=== PATIENT | male | born 1955 | race Caucasian/White ===

== ENCOUNTER 2019-10-21 21:07 | Inpatient (IN) | payer OTHER ==
[~2019-10-21] VITALS: Ht 167.6 cm; Wt 59.0 kg
[2019-10-21] MEDS ORDERED: IMODIUM A-1 MG/7.5 M PO (21:21)
[2019-10-21] MEDS ORDERED: ZOFRAN ODT8 MG ORAL (21:21)
[2019-10-21] MEDS ORDERED: BENADRYL A12.5 MG/5 ORAL (21:21)
[2019-10-21] MEDS ORDERED: TYLENOL EXTRA500 MG ORAL (21:21)
[2019-10-21] MEDS ORDERED: OXYCODONE HCL20 M1 ORAL (21:21)
[2019-10-21 21:43] VITALS: BP 128/72
[2019-10-21 21:50] LABS: HEMATOCRIT 43.1 % (42.0-52.0); HEMOGLOBIN 13.9 G/DL (14.2-18.0); MEAN CORPUSCULAR VOLUME 78 FL (80-99); PLATELET COUNT 495 K/UL (150-450); RED BLOOD COUNT 5.52 M/UL (4.70-6.10); RED CELL DISTRIBUTION WIDTH 14.8 % (11.6-14.8); WHITE BLOOD COUNT 20.8 K/UL (4.8-10.8)
--- NOTE | 2019-10-21 21:57 | Diagnostic Imaging Report ---
EXAM: XR Chest, 1 View CLINICAL HISTORY: COUGH TECHNIQUE: Frontal view of the chest. COMPARISON: No relevant prior studies available. FINDINGS: Lungs: Probable atelectasis and scarring within the lower lungs. Pleural space: Unremarkable. Heart: Unremarkable. Mediastinum: Unremarkable. Bones/joints: Unremarkable. IMPRESSION: No acute findings in the chest.
[2019-10-21 22:06] LABS: ALANINE AMINOTRANSFERASE 69 U/L (12-78); ALBUMIN 3.3 G/DL (3.4-5.0); ALBUMIN/GLOBULIN RATIO 0.6 (1.0-2.7); ALKALINE PHOSPHATASE 634 U/L (46-116); ANION GAP 19 mmol/L (5-15); ASPARTATE AMINO TRANSFERASE 26 U/L (15-37); BILIRUBIN,TOTAL 0.4 MG/DL (0.2-1.0); BLOOD UREA NITROGEN 132 mg/dL (7-18); CALCIUM 9.6 MG/DL (8.5-10.1); CARBON DIOXIDE 12 MMOL/L (21-32); CHLORIDE 84 MMOL/L (98-107); CREATININE 2.6 MG/DL (0.55-1.30)
[2019-10-21 22:13] LABS: SODIUM 116 MMOL/L (136-145)
--- NOTE | 2019-10-21 22:13 | Emergency Room Report ---
History of Present Illness General Chief Complaint: Abnormal Labs Source: Patient, Medical Record (Callum Farias MD) Present Illness HPI 63 yo M presents to ED for abnormal labs. sent in from SNF. Dr Torres called stating that his sodium is low, his kidney function is elevated. possible infection. no fever or chills. no cough. h/o rectal cancer with recent surgery. patient states he feels ok. no other aggravating or relieving factors. denies any other associated symptoms. (Callum Farias MD) Allergies: Coded Allergies: CHLORPROMAZINE (Verified Allergy, Unknown, 10/21/19) GABAPENTIN (Verified Allergy, Unknown, 10/21/19) TEMSIROLIMUS (Verified Allergy, Unknown, 10/21/19) COVID-19 Screening Contact w/high risk pt: No Recent Travel to affected area: No Experienced COVID-19 symptoms?: No (Callum Farias MD) Patient History Past Medical History: psych hx, other - rectal Ca Past Surgical History: other - rectal surgery Pertinent Family History: none Social History: Denies: smoking, alcohol use, drug use Immunizations: UTD Reviewed Nursing Documentation: PMH: Agreed; PSxH: Agreed (Callum Farias MD) Nursing Documentation-PMH Hx Gastrointestinal Problems: Yes - Rectal CA History Of Psychiatric Problem: Yes - major depressive disorder (Callum Farias MD) Review of Systems All Other Systems: negative except mentioned in HPI (Callum Farias MD) Physical Exam Vital Signs Date Time Temp Pulse Resp B/P (MAP) Pulse Ox O2 Delivery O2 Flow Rate FiO2 10/21/19 21:08 98.1 86 18 128/72 (90) 100 Room Air Sp02 EP Interpretation: reviewed, normal General Appearance: no apparent distress, alert, GCS 15, non-toxic Head: normocephalic, atraumatic Eyes: bilateral eye normal inspection, bilateral eye PERRL ENT: hearing grossly normal, normal pharynx, no angioedema, normal voice Neck: full range of motion, supple/symm/no masses Respiratory: chest non-tender, lungs clear, normal breath sounds, speaking full sentences Cardiovascular #1: regular rate, rhythm, no edema Cardiovascular #2: 2+ carotid (R), 2+ carotid (L), 2+ radial (R), 2+ radial (L) , 2+ dorsalis pedis (R), 2+ dorsalis pedis (L) Gastrointestinal: normal bowel sounds, non tender, soft, non-distended, no guarding, no rebound Rectal: deferred Genitourinary: normal inspection, no CVA tenderness Musculoskeletal: back normal, normal range of motion, gait/station normal, non- tender Neurologic: alert, motor strength/tone normal, oriented x3, sensory intact, responsive, speech normal Psychiatric: judgement/insight normal, memory normal, mood/affect normal, no suicidal/homicidal ideation Reflexes: 3+ bicep (R), 3+ bicep (L), 3+ tricep (R), 3+ tricep (L), 3+ knee (R) , 3+ knee (L) Skin: other - see nursing skin notes Lymphatic: no adenopathy (Callum Farias MD) Medical Decision Making Diagnostic Impression: Primary Impression: Hyponatremia Additional Impressions: Hypokalemia UTI (urinary tract infection) ER Course Patient signed out to me pending laboratory studies, and admission. Laboratory studies did demonstrate hyponatremia with hypokalemia. Patient started on volume resuscitation with potassium containing fluids. IV antibiotics given for UTI. Patient did have a white count of 20,000. Patient was afebrile. Patient will be admitted to the stepdown unit to his primary care physician, Dr. Torres who accepted the admission. Laboratory Tests Test 10/21/19 21:30 10/21/19 23:30 White Blood Count 20.8 K/UL (4.8-10.8) H Red Blood Count 5.52 M/UL (4.70-6.10) Hemoglobin 13.9 G/DL (14.2-18.0) L Hematocrit 43.1 % (42.0-52.0) Mean Corpuscular Volume 78 FL (80-99) L Mean Corpuscular Hemoglobin 25.2 PG (27.0-31.0) L Mean Corpuscular Hemoglobin Concent 32.3 G/DL (32.0-36.0) Red Cell Distribution Width 14.8 % (11.6-14.8) Platelet Count 495 K/UL (150-450) H Mean Platelet Volume 6.4 FL (6.5-10.1) L Neutrophils (%) (Auto) % (45.0-75.0) Lymphocytes (%) (Auto) % (20.0-45.0) Monocytes (%) (Auto) % (1.0-10.0) Eosinophils (%) (Auto) % (0.0-3.0) Basophils (%) (Auto) % (0.0-2.0) Differential Total Cells Counted 100 Neutrophils % (Manual) 97 % (45-75) H Lymphocytes % (Manual) 1 % (20-45) L Monocytes % (Manual) 2 % (1-10) Eosinophils % (Manual) 0 % (0-3) Basophils % (Manual) 0 % (0-2) Band Neutrophils 0 % (0-8) Platelet Estimate Increased H Platelet Morphology Giant Platelets Rare Anisocytosis 1+ Microcytosis 1+ Sodium Level 116 MMOL/L (136-145) *L Potassium Level 2.7 MMOL/L (3.5-5.1) *L Chloride Level 84 MMOL/L (98-107) L Carbon Dioxide Level 12 MMOL/L (21-32) L Anion Gap 19 mmol/L (5-15) H Blood Urea Nitrogen 132 mg/dL (7-18) H Creatinine 2.6 MG/DL (0.55-1.30) H Estimated Glomerular Filtration Rate 25.2 mL/min (>60) Glucose Level 165 MG/DL (74-106) H Lactic Acid Level 1.70 mmol/L (0.4-2.0) Calcium Level 9.6 MG/DL (8.5-10.1) Magnesium Level 2.4 MG/DL (1.8-2.4) Total Bilirubin 0.4 MG/DL (0.2-1.0) Aspartate Amino Transferase (AST) 26 U/L (15-37) Alanine Aminotransferase (ALT) 69 U/L (12-78) Alkaline Phosphatase 634 U/L (46-116) H Total Protein 8.8 G/DL (6.4-8.2) H Albumin 3.3 G/DL (3.4-5.0) L Globulin 5.5 g/dL Albumin/Globulin Ratio 0.6 (1.0-2.7) L Urine Color Pale yellow Urine Appearance Cloudy Urine pH 6.5 (4.5-8.0) Urine Specific [place] 1.010 (1.005-1.035) Urine Protein 3+ (NEGATIVE) H Urine Glucose (UA) Negative (NEGATIVE) Urine Ketones Negative (NEGATIVE) Urine Blood 4+ (NEGATIVE) H Urine Nitrite Negative (NEGATIVE) Urine Bilirubin Negative (NEGATIVE) Urine Urobilinogen Normal MG/DL (0.0-1.0) Urine Leukocyte Esterase 3+ (NEGATIVE) H Urine RBC 15-20 /HPF (0 - 0) H Urine WBC Tntc /HPF (0 - 0) H Urine Squamous Epithelial Cells None /LPF (NONE/OCC) Urine Bacteria Many /HPF (NONE) H (Jonah León M.D.) EKG Diagnostic Results Rate: normal Rhythm: NSR ST Segments: no acute changes ASA given to the pt in ED: No (Callum Farias MD) Rhythm Strip Diag. Results EP Interpretation: yes Rhythm: NSR, no PVC's, no ectopy (Callum Farias MD) Last Vital Signs Date Time Temp Pulse Resp B/P (MAP) Pulse Ox O2 Delivery O2 Flow Rate FiO2 10/21/19 21:43 98.1 70 18 128/72 100 Room Air Status: improved (Callum Farias MD) Disposition: ADMITTED INPATIENT Condition: Serious Callum Farias MD Oct 21, 2019 22:13 Jonah León M.D. Oct 22, 2019 02:12
[2019-10-21 22:14] LABS: POTASSIUM 2.7 MMOL/L (3.5-5.1)
[2019-10-21] MEDS: NS w/KCl 40mEq 1,000 ML IV SCH (22:18)
[2019-10-21] MEDS ORDERED: Acetaminophen 500mg (ES) tab ORAL ONE (22:30)
[2019-10-22] VITALS (7 sets, daily range): BP systolic 97–136; BP diastolic 57–78
[2019-10-22 00:13] LABS: BILIRUBIN, URINE NEGATIVE (NEGATIVE); COLOR,URINE PALE YELLOW; GLUCOSE, URINE (UA) NEGATIVE (NEGATIVE); KETONES,URINE NEGATIVE (NEGATIVE); LEUKOCYTE ESTERASE ,URINE 3+ (NEGATIVE); NITRITE,URINE NEGATIVE (NEGATIVE); PH,URINE 6.5 (4.5-8.0); PROTEIN,URINE 3+ (NEGATIVE); UROBILINOGEN,URINE NORMAL MG/DL (0.0-1.0)
[2019-10-22 00:17] LABS: APPEARANCE,URINE CLOUDY
[2019-10-22] MEDS ORDERED: cefTRIAXone 1 GM in NS 55 ML IVPB ONE (02:00)
[2019-10-22] MEDS ORDERED: Morphine Sulfate 4mg/ml Inj (IV USE ONLY) IVP ONE (05:45)
[2019-10-22] MEDS ORDERED: Ondansetron ODT 8mg tab ORAL PRN (06:00)
[2019-10-22] MEDS ORDERED: Miralax 17gm pkt ORAL PRN (06:00)
[2019-10-22] MEDS ORDERED: Morphine Sulfate 2mg/ml Inj(IV/IM USE ONLY) IVP PRN (06:00)
[2019-10-22] MEDS ORDERED: Morphine Sulfate 4mg/ml Inj (IV USE ONLY) IVP PRN (06:00)
--- NOTE | 2019-10-22 06:13 | History and Physical ---
History of Present Illness General Date patient seen: Oct 22, 2019 Time patient seen: 08:00 Reason for Hospitalization: Abnormal Labs Present Illness HPI 63 y/o M known to me for the past 2 months at [facility] Rehab [facility] where he has been recovering after rectal surgery for cancer, cystoprostatectomy, ileal conduit at [facility]. He was found to develop weakness yesterday and had a fall without injury. Labs were ordered and reported hypokalemia 3, acute renal failure with creatinine 2.3 and BUN 120, CO2 13, WBC 28 thousand He was referred to the ER last night emergently and upon arrival labs were repeated and found to have UTI as well IVF resuscitation and IVF with KCL were started by the ER and Dr Montgomery from nephrology was consulted for electrolyte and renal management Allergies: Coded Allergies: CHLORPROMAZINE (Verified Allergy, Unknown, 10/21/19) GABAPENTIN (Verified Allergy, Unknown, 10/21/19) TEMSIROLIMUS (Verified Allergy, Unknown, 10/21/19) COVID-19 Screening Contact w/high risk pt: No Recent Travel to affected area: No Experienced COVID-19 symptoms?: No Medication History Scheduled Loperamide Hcl (Imodium A-D), 2 CAP PO BID, (Reported) Scheduled PRN Acetaminophen* (Tylenol Extra Strength*), 1,000 MG ORAL Q6H PRN for Mild Pain/ Temp > 100.5, (Reported) Diphenhydramine Hcl* (Benadryl Allergy*), 25 MG ORAL BEDTIME PRN for insomnia, ( Reported) Ondansetron Odt* (Zofran Odt*), 4 MG ORAL Q6H PRN for Nausea & Vomiting, ( Reported) Oxycodone Hcl (Oxycodone Hcl), 5 MG ORAL BID PRN for For Pain, (Reported) Patient History Healthcare decision maker Resuscitation status Advanced Directive on File Review of Systems Constitutional: Reports: weakness All Other Systems: negative except mentioned in HPI ROS Narrative MILD WEAKNESS. DENIES CHEST PAIN, DYSURIA, SOB, FEVER, COUGH, ABDOMINAL PAIN Physical Exam General Appearance: WD/WN Lines, tubes and drains: peripheral HEENT: normocephalic, atraumatic Neck: normal alignment Respiratory/Chest: lungs clear Cardiovascular/Chest: normal rate, regular rhythm Abdomen: non tender Extremities: normal range of motion Neurologic: home care companion II-XII grossly normal Last 24 Hour Vital Signs Date Time Temp Pulse Resp B/P (MAP) Pulse Ox O2 Delivery O2 Flow Rate FiO2 10/21/19 21:43 98.1 70 18 128/72 100 Room Air 10/21/19 21:08 98.1 86 18 128/72 (90) 100 Room Air Laboratory Tests Test 10/21/19 21:30 10/21/19 23:30 White Blood Count 20.8 K/UL (4.8-10.8) H Red Blood Count 5.52 M/UL (4.70-6.10) Hemoglobin 13.9 G/DL (14.2-18.0) L Hematocrit 43.1 % (42.0-52.0) Mean Corpuscular Volume 78 FL (80-99) L Mean Corpuscular Hemoglobin 25.2 PG (27.0-31.0) L Mean Corpuscular Hemoglobin Concent 32.3 G/DL (32.0-36.0) Red Cell Distribution Width 14.8 % (11.6-14.8) Platelet Count 495 K/UL (150-450) H Mean Platelet Volume 6.4 FL (6.5-10.1) L Neutrophils (%) (Auto) % (45.0-75.0) Lymphocytes (%) (Auto) % (20.0-45.0) Monocytes (%) (Auto) % (1.0-10.0) Eosinophils (%) (Auto) % (0.0-3.0) Basophils (%) (Auto) % (0.0-2.0) Differential Total Cells Counted 100 Neutrophils % (Manual) 97 % (45-75) H Lymphocytes % (Manual) 1 % (20-45) L Monocytes % (Manual) 2 % (1-10) Eosinophils % (Manual) 0 % (0-3) Basophils % (Manual) 0 % (0-2) Band Neutrophils 0 % (0-8) Platelet Estimate Increased H Platelet Morphology Giant Platelets Rare Anisocytosis 1+ Microcytosis 1+ Sodium Level 116 MMOL/L (136-145) *L Potassium Level 2.7 MMOL/L (3.5-5.1) *L Chloride Level 84 MMOL/L (98-107) L Carbon Dioxide Level 12 MMOL/L (21-32) L Anion Gap 19 mmol/L (5-15) H Blood Urea Nitrogen 132 mg/dL (7-18) H Creatinine 2.6 MG/DL (0.55-1.30) H Estimat Glomerular Filtration Rate 25.2 mL/min (>60) Glucose Level 165 MG/DL (74-106) H Lactic Acid Level 1.70 mmol/L (0.4-2.0) Calcium Level 9.6 MG/DL (8.5-10.1) Magnesium Level 2.4 MG/DL (1.8-2.4) Total Bilirubin 0.4 MG/DL (0.2-1.0) Aspartate Amino Transf (AST/SGOT) 26 U/L (15-37) Alanine Aminotransferase (ALT/SGPT) 69 U/L (12-78) Alkaline Phosphatase 634 U/L (46-116) H Total Protein 8.8 G/DL (6.4-8.2) H Albumin 3.3 G/DL (3.4-5.0) L Globulin 5.5 g/dL Albumin/Globulin Ratio 0.6 (1.0-2.7) L Urine Color Pale yellow Urine Appearance Cloudy Urine pH 6.5 (4.5-8.0) Urine Specific [place] 1.010 (1.005-1.035) Urine Protein 3+ (NEGATIVE) H Urine Glucose (UA) Negative (NEGATIVE) Urine Ketones Negative (NEGATIVE) Urine Blood 4+ (NEGATIVE) H Urine Nitrite Negative (NEGATIVE) Urine Bilirubin Negative (NEGATIVE) Urine Urobilinogen Normal MG/DL (0.0-1.0) Urine Leukocyte Esterase 3+ (NEGATIVE) H Urine RBC 15-20 /HPF (0 - 0) H Urine WBC Tntc /HPF (0 - 0) H Urine Squamous Epithelial Cells None /LPF (NONE/OCC) Urine Bacteria Many /HPF (NONE) H Height (Feet): 5 Height (Inches): 10.00 Weight (Pounds): 160 Medications Current Medications Medications (Trade) Dose Ordered Sig/Natanael Route PRN Reason Start Time Stop Time Status Last Admin Dose Admin Potassium Chloride/Sodium Chloride 1,000 ml @ 100 mls/hr Q10H IV 10/21/19 22:15 10/22/19 22:14 10/21/19 22:18 Assessment/Plan Status: stable Assessment/Plan: 63 /o male s/p rectal resection due to malignancy and cystoprostatectomy with ileal conduit admitted with: # Sepsis due to UTI IVF Ceftriaxone started Folow up urine cx and blood cx and sensitivities Monitor CBC # Acute renal failure due to dehydration IVF Renal consult with Dr. Montgomery. Monitor renal function and electrolyte function. Acid base status. # Hypokalemia Replete with IVF Monitor closely. K pending today. Telemetry needed. # Metabolic acidosis Monitor Acid Base status BMP Consider bicarbonate after hypokalemia is improved #History of rectal cancer s/p resection and cystoprostatectomy with ileal conduit Pain control # DVT ppx Enoxaparin # GI ppx Pepcid # FULL CODE Aminah Torres MD Oct 22, 2019 06:13
[2019-10-22] MEDS: Enoxaparin 30mg Inj SUBQ SCH (08:15)
[2019-10-22] MEDS: NS w/KCl 40mEq 1,000 ML IV SCH (08:15)
[2019-10-22] MEDS ORDERED: Docusate 100mg cap ORAL SCH (09:00)
[2019-10-22] MEDS ORDERED: oxyCODONE 5mg IR tab ORAL PRN (09:00)
[2019-10-22 10:44] LABS: HEMATOCRIT 38.7 % (42.0-52.0); HEMOGLOBIN 13.2 G/DL (14.2-18.0); MEAN CORPUSCULAR VOLUME 76 FL (80-99); PLATELET COUNT 478 K/UL (150-450); RED BLOOD COUNT 5.08 M/UL (4.70-6.10); RED CELL DISTRIBUTION WIDTH 12.8 % (11.6-14.8)
[2019-10-22 10:49] LABS: WHITE BLOOD COUNT 23.5 K/UL (4.8-10.8)
[2019-10-22 11:09] LABS: ANION GAP 19 mmol/L (5-15); BLOOD UREA NITROGEN 106 mg/dL (7-18); CALCIUM 8.6 MG/DL (8.5-10.1); CARBON DIOXIDE 11 MMOL/L (21-32); CHLORIDE 94 MMOL/L (98-107); CREATININE 2.2 MG/DL (0.55-1.30); POTASSIUM 3.5 MMOL/L (3.5-5.1); SODIUM 124 MMOL/L (136-145)
[2019-10-22 11:15] LABS: ALANINE AMINOTRANSFERASE 71 U/L (12-78); ALBUMIN 2.9 G/DL (3.4-5.0); ALBUMIN/GLOBULIN RATIO 0.6 (1.0-2.7); ALKALINE PHOSPHATASE 542 U/L (46-116); ASPARTATE AMINO TRANSFERASE 23 U/L (15-37); BILIRUBIN,TOTAL 0.4 MG/DL (0.2-1.0)
[2019-10-22 11:36] LABS: CREATINE KINASE 91 U/L (26-308); FERRITIN 364 NG/ML (8-388); GAMMA GLUTAMYL TRANSPEPTIDASE 621 U/L (5-85); PHOSPHORUS 3.8 MG/DL (2.5-4.9)
--- NOTE | 2019-10-22 14:13 | Consultation ---
Consult Note Consult Note I was asked to evaluate the patient at the request of Dr. Torres for renal failure and electrolyte imbalances 63 yo M presents to ED for abnormal labs. sent in from SNF. Dr Torres called stating that his sodium is low, his kidney function is elevated. possible infection. no fever or chills. no cough. h/o rectal cancer with recent surgery. patient states he feels ok. no other aggravating or relieving factors. denies any other associated symptoms. Coded Allergies: CHLORPROMAZINE (Verified Allergy, Unknown, 10/21/19) GABAPENTIN (Verified Allergy, Unknown, 10/21/19) TEMSIROLIMUS (Verified Allergy, Unknown, 10/21/19) COVID-19 Screening Contact w/high risk pt: No Recent Travel to affected area: No Experienced COVID-19 symptoms?: No Past Medical History: psych hx, other - rectal Ca Past Surgical History: other - rectal surgery Pertinent Family History: none Social History: Denies: smoking, alcohol use, drug use Immunizations: UTD Reviewed Nursing Documentation: PMH: Agreed; PSxH: Agreed (Callum Farias MD) Hx Gastrointestinal Problems: Yes - Rectal CA History Of Psychiatric Problem: Yes - major depressive disorder Assessment/Plan Acute renal failure, mainly prerenal azotemia, mainly dehydration Underlying chronic kidney disease cannot be ruled out Severe hyponatremia Hypokalemia Urinary tract infection, sepsis Hypoalbuminemia, elevated liver enzymes Saline infusion Bicitra p.o. Potassium supplement Monitor renal parameters and intake and output Monitor electrolytes Avoid nephrotoxic's Luther Montgomery MD Oct 22, 2019 14:13
[2019-10-22] MEDS: Sodium Citrate 30ml ORAL SCH ×3 (14:15→17:07)
[2019-10-22] MEDS ORDERED: Vancomycin 1.25gm/NS Premix q24h IVPB SCH (15:00)
[2019-10-22] MEDS: NS w/KCl 20mEq 1000ml 1,000 ML IV SCH ×2 (15:55→23:44)
[2019-10-22] MEDS: Docusate 100mg cap ORAL SCH ×2 (17:07→17:23)
[2019-10-22] MEDS: Tamsulosin 0.4mg cap ORAL SCH ×2 (20:24→21:09)
[2019-10-22 20:35] LABS: ALANINE AMINOTRANSFERASE 53 U/L (12-78); ALBUMIN 3.3 G/DL (3.4-5.0); ALBUMIN/GLOBULIN RATIO 0.8 (1.0-2.7); ALKALINE PHOSPHATASE 412 U/L (46-116); ASPARTATE AMINO TRANSFERASE 18 U/L (15-37); BILIRUBIN,TOTAL 0.3 MG/DL (0.2-1.0); BLOOD UREA NITROGEN 95 mg/dL (7-18); CALCIUM 8.2 MG/DL (8.5-10.1); CARBON DIOXIDE 12 MMOL/L (21-32); CHLORIDE 99 MMOL/L (98-107); CREATININE 1.9 MG/DL (0.55-1.30); SODIUM 131 MMOL/L (136-145)
[2019-10-22 20:39] LABS: ANION GAP 20 mmol/L (5-15); POTASSIUM 2.5 MMOL/L (3.5-5.1)
[2019-10-22] MEDS: cefTRIAXone 1gm/D5W 55ml IVPB SCH ×2 (21:09)
[2019-10-23] VITALS: BP 99/67
[2019-10-23 04:00] VITALS: BP 96/66
[2019-10-23] MEDS ORDERED: DiphenhydrAMINE 25mg Tab ORAL PRN ×2 (04:00→09:45)
[2019-10-23] MEDS ORDERED: NS 250 ML IVPB ONE (04:15)
[2019-10-23] MEDS: Sodium Citrate 30ml ORAL SCH ×5 (05:19→23:47)
[2019-10-23 05:35] LABS: HEMATOCRIT 32.9 % (42.0-52.0); HEMOGLOBIN 11.3 G/DL (14.2-18.0); MEAN CORPUSCULAR VOLUME 75 FL (80-99); PLATELET COUNT 391 K/UL (150-450); RED BLOOD COUNT 4.38 M/UL (4.70-6.10); RED CELL DISTRIBUTION WIDTH 12.8 % (11.6-14.8); WHITE BLOOD COUNT 16.7 K/UL (4.8-10.8)
[2019-10-23 06:38] LABS: ALANINE AMINOTRANSFERASE 48 U/L (12-78); ALBUMIN 3.4 G/DL (3.4-5.0); ALKALINE PHOSPHATASE 432 U/L (46-116); ANION GAP 18 mmol/L (5-15); ASPARTATE AMINO TRANSFERASE 23 U/L (15-37); BILIRUBIN,TOTAL 0.3 MG/DL (0.2-1.0); BLOOD UREA NITROGEN 81 mg/dL (7-18); CALCIUM 8.7 MG/DL (8.5-10.1); CARBON DIOXIDE 13 MMOL/L (21-32); CHLORIDE 99 MMOL/L (98-107); CREATININE 1.7 MG/DL (0.55-1.30); POTASSIUM 3.2 MMOL/L (3.5-5.1); SODIUM 130 MMOL/L (136-145)
[2019-10-23 06:58] LABS: % IRON SATURATION 24 % (15-50); IRON 52 ug/dL (50-175); TOTAL IRON BINDING CAPACITY 214 ug/dL (250-450)
[2019-10-23 07:13] LABS: CREATINE KINASE 162 U/L (26-308); LACTATE DEHYDROGENASE 211 U/L (81-234); PHOSPHORUS 3.3 MG/DL (2.5-4.9)
[2019-10-23 08:00] VITALS: BP 92/52
[2019-10-23] MEDS: NS w/KCl 20mEq 1000ml 1,000 ML IV SCH ×3 (08:44→23:47)
[2019-10-23] MEDS: Docusate 100mg cap ORAL SCH ×3 (09:00→17:36)
[2019-10-23] MEDS ORDERED: Vancomycin 1 GM in NS 275 ML IVPB ONE (09:00)
--- NOTE | 2019-10-23 09:47 | General Progress Note ---
Assessment/Plan Status: stable Assessment/Plan: 63 /o male s/p rectal resection due to malignancy and cystoprostatectomy with ileal conduit admitted with: # Sepsis due to UTI IVF Ceftriaxone and Vacomycin added. Folow up urine cx and blood cx and sensitivities Monitor CBC. WBC is downtrending from 23 K to 16.7 K today. # Acute renal failure due to dehydration IVF Renal consult with Dr. Montgomery. Monitor renal function and electrolyte function. Acid base status. AG metabolic acidosis. Bicitra 30 ml q 6 hr Creatinine improved to 1.7 and BUN is down to 81 # Hypokalemia Replete with IVF Monitor closely. K being replaced. Telemetry needed. Afternoon BMP ordered post replacement. # Metabolic acidosis Monitor Acid Base status BMP and Bicitra started. #History of rectal cancer s/p resection and cystoprostatectomy with ileal conduit Pain control. Baseline he uses Oxycodone 10 mg PRN q 4-6 hr # DVT ppx Enoxaparin # GI ppx Pepcid # FULL CODE Subjective Date patient seen: Oct 23, 2019 Time patient seen: 09:30 ROS Limited/Unobtainable: No Constitutional: Reports: malaise, weakness Allergies: Coded Allergies: CHLORPROMAZINE (Verified Allergy, Unknown, 10/21/19) GABAPENTIN (Verified Allergy, Unknown, 10/21/19) TEMSIROLIMUS (Verified Allergy, Unknown, 10/21/19) Subjective Multiple complains regarding not being able to get her pain medication and Benadryl as he has taken it before this admission. Explained that his blood pressure is low and is not safe to use this medications under such circumstance. Objective Last 24 Hour Vital Signs Date Time Temp Pulse Resp B/P (MAP) Pulse Ox O2 Delivery O2 Flow Rate FiO2 10/23/19 08:00 97.7 97 20 92/52 (65) 98 10/23/19 04:00 Room Air 10/23/19 04:00 98.1 90 21 96/66 (76) 98 10/23/19 04:00 94 10/23/19 00:00 97.9 87 21 99/67 (78) 99 10/23/19 00:00 80 10/23/19 00:00 Room Air 10/22/19 20:00 82 10/22/19 20:00 Room Air 10/22/19 20:00 97.8 87 20 97/65 (76) 99 10/22/19 16:00 97.5 84 21 107/73 (84) 98 10/22/19 16:00 78 10/22/19 12:00 85 10/22/19 12:00 97.5 93 21 100/57 (71) 98 10/22/19 09:55 Room Air Intake and Output 10/22/19 10/23/19 19:00 07:00 Intake Total 683.333 ml 1605 ml Output Total 800 ml 400 ml Balance -116.667 ml 1205 ml Intake Oral 500 ml IV Total 183.333 ml 1605 ml Output Urine Total 350 ml Stool Total 450 ml 400 ml # Bowel Movements 3 Laboratory Tests 10/22/19 10:25: White Blood Count 23.5*H, Red Blood Count 5.08, Hemoglobin 13.2L, Hematocrit 38.7L, Mean Corpuscular Volume 76L, Mean Corpuscular Hemoglobin 25.9L, Mean Corpuscular Hemoglobin Concent 34.0, Red Cell Distribution Width 12.8, Platelet Count 478H, Mean Platelet Volume 5.6L, Neutrophils (%) (Auto) , Lymphocytes (%) (Auto) , Monocytes (%) (Auto) , Eosinophils (%) (Auto) , Basophils (%) (Auto) , Differential Total Cells Counted 100, Neutrophils % (Manual) 95H, Lymphocytes % (Manual) 2L, Monocytes % (Manual) 3, Eosinophils % (Manual) 0, Basophils % ( Manual) 0, Band Neutrophils 0, Platelet Estimate Adequate, Platelet Morphology Normal, Anisocytosis 1+, Microcytosis 1+, D-Dimer 1.01H, Sodium Level 124L, Potassium Level 3.5, Chloride Level 94L, Carbon Dioxide Level 11L, Anion Gap 19H , Blood Urea Nitrogen 106H, Creatinine 2.2H, Estimat Glomerular Filtration Rate 30.6, Glucose Level 198H, Uric Acid 4.1, Calcium Level 8.6, Phosphorus Level 3.8 , Magnesium Level 2.1, Ferritin 364, Total Bilirubin 0.4, Gamma Glutamyl Transpeptidase 621H, Aspartate Amino Transf (AST/SGOT) 23, Alanine Aminotransferase (ALT/SGPT) 71, Alkaline Phosphatase 542H, Total Creatine Kinase 91, Troponin I 0.014, C-Reactive Protein, Quantitative 5.4H, Pro-B-Type Natriuretic Peptide 1112H, Total Protein 7.9, Albumin 2.9L, Globulin 5.0, Albumin/Globulin Ratio 0.6L, Thyroid Stimulating Hormone (TSH) 0.912 10/22/19 17:33: Urine Random Sodium < 20L 10/22/19 20:10: Sodium Level 131L, Potassium Level 2.5*L, Chloride Level 99, Carbon Dioxide Level 12L, Anion Gap 20H, Blood Urea Nitrogen 95H, Creatinine 1.9H, Estimat Glomerular Filtration Rate 36.2, Glucose Level 155H, Calcium Level 8.2L, Total Bilirubin 0.3, Aspartate Amino Transf (AST/SGOT) 18, Alanine Aminotransferase ( ALT/SGPT) 53, Alkaline Phosphatase 412H, Total Protein 7.4, Albumin 3.3L, Globulin 4.1, Albumin/Globulin Ratio 0.8L 10/23/19 03:56: White Blood Count 16.7H, Red Blood Count 4.38L, Hemoglobin 11.3L, Hematocrit 32.9L, Mean Corpuscular Volume 75L, Mean Corpuscular Hemoglobin 25.9L, Mean Corpuscular Hemoglobin Concent 34.5, Red Cell Distribution Width 12.8, Platelet Count 391, Mean Platelet Volume 5.1L, Neutrophils (%) (Auto) , Lymphocytes (%) ( Auto) , Monocytes (%) (Auto) , Eosinophils (%) (Auto) , Basophils (%) (Auto) , Differential Total Cells Counted 100, Neutrophils % (Manual) 96H, Lymphocytes % (Manual) 0L, Monocytes % (Manual) 4, Eosinophils % (Manual) 0, Basophils % ( Manual) 0, Band Neutrophils 0, Platelet Estimate Adequate, Platelet Morphology Normal, Microcytosis 2+, D-Dimer 1.17H, Sodium Level 130L, Potassium Level 3.2L , Chloride Level 99, Carbon Dioxide Level 13L, Anion Gap 18H, Blood Urea Nitrogen 81H, Creatinine 1.7H, Estimat Glomerular Filtration Rate 41.2, Glucose Level 105, Uric Acid 3.2, Calcium Level 8.7, Phosphorus Level 3.3, Magnesium Level 2.0, Ferritin 331, Total Bilirubin 0.3, Aspartate Amino Transf (AST/SGOT) 23, Alanine Aminotransferase (ALT/SGPT) 48, Alkaline Phosphatase 432H, Total Creatine Kinase 162, Troponin I 0.008, C-Reactive Protein, Quantitative 8.8H, Pro-B-Type Natriuretic Peptide 1360H, Total Protein 6.9, Albumin 3.4, Globulin 3.5, Albumin/Globulin Ratio 1.0, Hemoglobin A1c 7.7H, Iron Level 52, Total Iron Binding Capacity 214L, Percent Iron Saturation 24, Unsaturated Iron Binding 162 , Lactate Dehydrogenase 211, Prostate Specific Antigen < 0.10L, Vitamin B12 Level 1680H, Folate 8.6, Random Vancomycin Level 17.5 10/23/19 08:20: Arterial Blood pH 7.281L, Arterial Blood Partial Pressure CO2 20.2*L, Arterial Blood Partial Pressure O2 109.3H, Arterial Blood HCO3 9.3*L, Arterial Blood Oxygen Saturation 97.6, Arterial Blood Base Excess -15.4*L, Aman Test Positive Height (Feet): 5 Height (Inches): 6.00 Weight (Pounds): 132 General Appearance: moderate distress, other - somnolent EENT: PERRL/EOMI Neck: normal alignment Cardiovascular: normal rate Respiratory/Chest: lungs clear Abdomen: normal bowel sounds Edema: trace edema Neurologic: fundraising sale representative II-XII grossly normal Aminah Torres MD Oct 23, 2019 09:47
[2019-10-23] MEDS: Enoxaparin 30mg Inj SUBQ SCH (10:00)
[2019-10-23 12:00] VITALS: BP 97/62
[2019-10-23 16:00] VITALS: BP 102/63
[2019-10-23 16:54] LABS: ANION GAP 17 mmol/L (5-15); BLOOD UREA NITROGEN 64 mg/dL (7-18); CALCIUM 8.9 MG/DL (8.5-10.1); CARBON DIOXIDE 15 MMOL/L (21-32); CHLORIDE 100 MMOL/L (98-107); CREATININE 1.6 MG/DL (0.55-1.30); POTASSIUM 3.2 MMOL/L (3.5-5.1); SODIUM 132 MMOL/L (136-145)
[2019-10-23] MEDS: oxyCODONE HCL/Acetaminophen 5/325mg ORAL PRN ×2 (17:27→21:33)
--- NOTE | 2019-10-23 19:07 | Nephrology Progress Note ---
Assessment/Plan Problem List: (1) VELASQUEZ (acute kidney injury) (2) UTI (urinary tract infection) (3) Hyponatremia (4) Hypokalemia (5) Dehydration Assessment Acute renal failure, mainly prerenal azotemia, mainly dehydration Underlying chronic kidney disease cannot be ruled out Severe hyponatremia Hypokalemia Urinary tract infection, sepsis Hypoalbuminemia, elevated liver enzymes Plan Saline infusion Bicitra p.o. Potassium supplement Monitor renal parameters and intake and output Monitor electrolytes Avoid nephrotoxic's Subjective ROS Limited/Unobtainable: No Constitutional: Reports: malaise, weakness Objective Objective Last 24 Hour Vital Signs Date Time Temp Pulse Resp B/P (MAP) Pulse Ox O2 Delivery O2 Flow Rate FiO2 10/23/19 17:57 97.0 10/23/19 16:00 97.0 89 19 102/63 (76) 97 10/23/19 16:00 111 10/23/19 12:00 97.0 58 19 97/62 (74) 97 10/23/19 12:00 79 10/23/19 12:00 Room Air 10/23/19 08:00 97.7 97 20 92/52 (65) 98 10/23/19 08:00 110 10/23/19 08:00 Room Air 10/23/19 04:00 Room Air 10/23/19 04:00 98.1 90 21 96/66 (76) 98 10/23/19 04:00 94 10/23/19 00:00 97.9 87 21 99/67 (78) 99 10/23/19 00:00 80 10/23/19 00:00 Room Air 10/22/19 20:00 82 10/22/19 20:00 Room Air 10/22/19 20:00 97.8 87 20 97/65 (76) 99 Intake and Output 10/22/19 10/23/19 19:00 07:00 Intake Total 683.333 ml 1605 ml Output Total 800 ml 400 ml Balance -116.667 ml 1205 ml Intake Oral 500 ml IV Total 183.333 ml 1605 ml Output Urine Total 350 ml Stool Total 450 ml 400 ml # Bowel Movements 3 Laboratory Tests 10/22/19 20:10: Sodium Level 131L, Potassium Level 2.5*L, Chloride Level 99, Carbon Dioxide Level 12L, Anion Gap 20H, Blood Urea Nitrogen 95H, Creatinine 1.9H, Estimat Glomerular Filtration Rate 36.2, Glucose Level 155H, Calcium Level 8.2L, Total Bilirubin 0.3, Aspartate Amino Transf (AST/SGOT) 18, Alanine Aminotransferase ( ALT/SGPT) 53, Alkaline Phosphatase 412H, Total Protein 7.4, Albumin 3.3L, Globulin 4.1, Albumin/Globulin Ratio 0.8L 10/23/19 03:56: Sodium Level 130L, Potassium Level 3.2L, Chloride Level 99, Carbon Dioxide Level 13L, Anion Gap 18H, Blood Urea Nitrogen 81H, Creatinine 1.7H, Estimat Glomerular Filtration Rate 41.2, Glucose Level 105, Calcium Level 8.7, Total Bilirubin 0.3, Aspartate Amino Transf (AST/SGOT) 23, Alanine Aminotransferase ( ALT/SGPT) 48, Alkaline Phosphatase 432H, Total Protein 6.9, Albumin 3.4, Globulin 3.5, Albumin/Globulin Ratio 1.0, White Blood Count 16.7H, Red Blood Count 4.38L, Hemoglobin 11.3L, Hematocrit 32.9L, Mean Corpuscular Volume 75L, Mean Corpuscular Hemoglobin 25.9L, Mean Corpuscular Hemoglobin Concent 34.5, Red Cell Distribution Width 12.8, Platelet Count 391, Mean Platelet Volume 5.1L , Neutrophils (%) (Auto) , Lymphocytes (%) (Auto) , Monocytes (%) (Auto) , Eosinophils (%) (Auto) , Basophils (%) (Auto) , Differential Total Cells Counted 100, Neutrophils % (Manual) 96H, Lymphocytes % (Manual) 0L, Monocytes % (Manual) 4, Eosinophils % (Manual) 0, Basophils % (Manual) 0, Band Neutrophils 0 , Platelet Estimate Adequate, Platelet Morphology Normal, Microcytosis 2+, D- Dimer 1.17H, Hemoglobin A1c 7.7H, Uric Acid 3.2, Phosphorus Level 3.3, Magnesium Level 2.0, Iron Level 52, Total Iron Binding Capacity 214L, Percent Iron Saturation 24, Unsaturated Iron Binding 162, Ferritin 331, Lactate Dehydrogenase 211, Total Creatine Kinase 162, Troponin I 0.008, C-Reactive Protein, Quantitative 8.8H, Pro-B-Type Natriuretic Peptide 1360H, Prostate Specific Antigen < 0.10L, Vitamin B12 Level 1680H, Folate 8.6, Random Vancomycin Level 17.5 10/23/19 08:20: Arterial Blood pH 7.281L, Arterial Blood Partial Pressure CO2 20.2*L, Arterial Blood Partial Pressure O2 109.3H, Arterial Blood HCO3 9.3*L, Arterial Blood Oxygen Saturation 97.6, Arterial Blood Base Excess -15.4*L, Aman Test Positive 10/23/19 16:00: Sodium Level 132L, Potassium Level 3.2L, Chloride Level 100, Carbon Dioxide Level 15L, Anion Gap 17H, Blood Urea Nitrogen 64H, Creatinine 1.6H, Estimat Glomerular Filtration Rate 44.2, Glucose Level 167H, Calcium Level 8.9 Height (Feet): 5 Height (Inches): 6.00 Weight (Pounds): 132 General Appearance: no apparent distress, lethargic Cardiovascular: tachycardia Respiratory/Chest: decreased breath sounds Abdomen: soft Luther Montgomery MD Oct 23, 2019 19:07
[2019-10-23 20:00] VITALS: BP 115/67
[2019-10-23] MEDS: cefTRIAXone 1gm/D5W 55ml IVPB SCH ×2 (21:31)
[2019-10-23] MEDS: Tamsulosin 0.4mg cap ORAL SCH (21:31)
[2019-10-24] VITALS (7 sets, daily range): BP systolic 90–114; BP diastolic 51–66
[2019-10-24] MEDS: oxyCODONE HCL/Acetaminophen 5/325mg ORAL PRN ×4 (02:46→21:59)
[2019-10-24] MEDS: Sodium Citrate 30ml ORAL SCH ×3 (05:14→17:30)
[2019-10-24 07:30] LABS: HEMATOCRIT 33.3 % (42.0-52.0); HEMOGLOBIN 11.2 G/DL (14.2-18.0); MEAN CORPUSCULAR VOLUME 76 FL (80-99); PLATELET COUNT 395 K/UL (150-450); RED BLOOD COUNT 4.37 M/UL (4.70-6.10); RED CELL DISTRIBUTION WIDTH 13.3 % (11.6-14.8); WHITE BLOOD COUNT 13.8 K/UL (4.8-10.8)
[2019-10-24 07:58] LABS: ALANINE AMINOTRANSFERASE 46 U/L (12-78); ALBUMIN/GLOBULIN RATIO 0.7 (1.0-2.7); ALKALINE PHOSPHATASE 358 U/L (46-116); ANION GAP 17 mmol/L (5-15); ASPARTATE AMINO TRANSFERASE 24 U/L (15-37); BILIRUBIN,TOTAL 0.3 MG/DL (0.2-1.0); BLOOD UREA NITROGEN 53 mg/dL (7-18); CALCIUM 8.9 MG/DL (8.5-10.1); CARBON DIOXIDE 16 MMOL/L (21-32); CHLORIDE 103 MMOL/L (98-107); CREATININE 1.6 MG/DL (0.55-1.30); POTASSIUM 3.1 MMOL/L (3.5-5.1); SODIUM 135 MMOL/L (136-145)
[2019-10-24] MEDS ORDERED: Morphine Sulfate 2mg/ml Inj(IV/IM USE ONLY) IVP PRN (08:00)
[2019-10-24] MEDS ORDERED: Morphine Sulfate 4mg/ml Inj (IV USE ONLY) IVP PRN (08:00)
[2019-10-24 08:08] LABS: PHOSPHORUS 2.4 MG/DL (2.5-4.9)
[2019-10-24] MEDS ORDERED: Enoxaparin 30mg Inj SUBQ SCH (09:00)
[2019-10-24] MEDS: NS w/KCl 20mEq 1000ml 1,000 ML IV SCH ×2 (10:03→17:29)
[2019-10-24] MEDS: Docusate 100mg cap ORAL SCH ×3 (10:04→17:00)
[2019-10-24] MEDS ORDERED: Vancomycin 1 GM in NS 275 ML IVPB ONE (11:00)
[2019-10-24] MEDS ORDERED: Ondansetron ODT 8mg tab ORAL PRN (12:00)
--- NOTE | 2019-10-24 12:06 | Nephrology Progress Note ---
Assessment/Plan Problem List: (1) VELASQUEZ (acute kidney injury) (2) UTI (urinary tract infection) (3) Hyponatremia (4) Hypokalemia (5) Dehydration Assessment Acute renal failure, mainly prerenal azotemia, mainly dehydration Underlying chronic kidney disease cannot be ruled out Severe hyponatremia Hypokalemia Urinary tract infection, sepsis Hypoalbuminemia, elevated liver enzymes Plan Saline infusion Bicitra p.o. Potassium supplement Monitor renal parameters and intake and output Monitor electrolytes Avoid nephrotoxic's Subjective ROS Limited/Unobtainable: No Constitutional: Reports: malaise Objective Objective Last 24 Hour Vital Signs Date Time Temp Pulse Resp B/P (MAP) Pulse Ox O2 Delivery O2 Flow Rate FiO2 10/24/19 10:48 96.7 10/24/19 09:00 Room Air 10/24/19 08:00 96.7 92 20 95/63 (74) 98 10/24/19 08:00 96 10/24/19 04:00 Room Air 10/24/19 04:00 98.2 74 20 90/51 (64) 100 10/24/19 03:34 96 10/24/19 02:45 93 114/62 (79) 10/24/19 00:00 98.0 86 20 95/54 (68) 100 10/24/19 00:00 Room Air 10/23/19 23:28 87 10/23/19 20:00 Room Air 10/23/19 20:00 98.2 87 20 115/67 (83) 100 10/23/19 19:34 93 10/23/19 17:57 97.0 10/23/19 16:00 97.0 89 19 102/63 (76) 97 10/23/19 16:00 Room Air 10/23/19 16:00 111 Intake and Output 10/23/19 10/24/19 19:00 07:00 Intake Total 575 ml 1832.1 ml Output Total 500 ml 700 ml Balance 75 ml 1132.1 ml Intake Oral 450 ml 500 ml IV Total 125 ml 1332.1 ml Stool Total 500 ml 700 ml # Voids 4 3 # Bowel Movements 3 3 Laboratory Tests 10/23/19 16:00: Sodium Level 132L, Potassium Level 3.2L, Chloride Level 100, Carbon Dioxide Level 15L, Anion Gap 17H, Blood Urea Nitrogen 64H, Creatinine 1.6H, Estimat Glomerular Filtration Rate 44.2, Glucose Level 167H, Calcium Level 8.9 10/24/19 06:30: Sodium Level 135L, Potassium Level 3.1L, Chloride Level 103, Carbon Dioxide Level 16L, Anion Gap 17H, Blood Urea Nitrogen 53H, Creatinine 1.6H, Estimat Glomerular Filtration Rate 44.2, Glucose Level 142H, Calcium Level 8.9, White Blood Count 13.8H, Red Blood Count 4.37L, Hemoglobin 11.2L, Hematocrit 33.3L, Mean Corpuscular Volume 76L, Mean Corpuscular Hemoglobin 25.6L, Mean Corpuscular Hemoglobin Concent 33.6, Red Cell Distribution Width 13.3, Platelet Count 395, Mean Platelet Volume 5.5L, Neutrophils (%) (Auto) , Lymphocytes (%) ( Auto) , Monocytes (%) (Auto) , Eosinophils (%) (Auto) , Basophils (%) (Auto) , Differential Total Cells Counted 100, Neutrophils % (Manual) 97H, Lymphocytes % (Manual) 2L, Monocytes % (Manual) 1, Eosinophils % (Manual) 0, Basophils % ( Manual) 0, Band Neutrophils 0, Platelet Estimate Adequate, Platelet Morphology Normal, Anisocytosis 1+, Microcytosis 1+, Uric Acid 3.0, Phosphorus Level 2.4L, Magnesium Level 1.9, Total Bilirubin 0.3, Gamma Glutamyl Transpeptidase 378H, Aspartate Amino Transf (AST/SGOT) 24, Alanine Aminotransferase (ALT/SGPT) 46, Alkaline Phosphatase 358H, C-Reactive Protein, Quantitative 9.6H, Pro-B-Type Natriuretic Peptide 1818H, Total Protein 7.4, Albumin 3.0L, Globulin 4.4, Albumin/Globulin Ratio 0.7L, Random Vancomycin Level 16.4 Height (Feet): 5 Height (Inches): 6.00 Weight (Pounds): 130 General Appearance: no apparent distress Cardiovascular: tachycardia Respiratory/Chest: decreased breath sounds Objective no change Luther Montgomery MD Oct 24, 2019 12:06
--- NOTE | 2019-10-24 14:11 | General Progress Note ---
Assessment/Plan Status: stable Assessment/Plan: 63 /o male s/p rectal resection due to malignancy and cystoprostatectomy with ileal conduit admitted with: # Sepsis due to UTI IVF Ceftriaxone and Vacomycin pending final results. Folow up urine cx and blood cx and sensitivities. 2 specimens noted. G+ cocci and GN bacilli. Will call lab to discuss. Per lab final result tomorrow. Monitor CBC. WBC is downtrending # Acute renal failure due to dehydration IVF Renal consult with Dr. Montgomery. Monitor renal function and electrolyte function. Acid base status. AG metabolic acidosis. Bicitra 30 ml q 6 hr Creatinine improved to 1.6 and BUN improved. # Hypokalemia Replete with IVF Monitor closely. K being replaced. Telemetry # Metabolic acidosis Monitor Acid Base status BMP and Bicitra #History of rectal cancer s/p resection and cystoprostatectomy with ileal conduit Colostomy care Pain control. Baseline he uses Oxycodone 10 mg PRN q 4-6 hr # DVT ppx Enoxaparin # GI ppx Pepcid # PT evaluation # FULL CODE Subjective Date patient seen: Oct 24, 2019 Time patient seen: 13:00 ROS Limited/Unobtainable: No Constitutional: Reports: weakness HEENT: Reports: no symptoms Cardiovascular: Reports: no symptoms Respiratory: Reports: no symptoms Allergies: Coded Allergies: CHLORPROMAZINE (Verified Allergy, Unknown, 10/21/19) GABAPENTIN (Verified Allergy, Unknown, 10/21/19) TEMSIROLIMUS (Verified Allergy, Unknown, 10/21/19) Subjective Patient is now on Telemetry unit. Complains of weakness and his L foot is sore. He is affraid to attempt to walk and asking for a WC so he can roll on the floor. I explained that PT evaluation will be ordered. Objective Last 24 Hour Vital Signs Date Time Temp Pulse Resp B/P (MAP) Pulse Ox O2 Delivery O2 Flow Rate FiO2 10/24/19 12:00 96.7 80 20 102/66 (78) 96 10/24/19 12:00 94 10/24/19 10:48 96.7 10/24/19 09:00 Room Air 10/24/19 08:00 96.7 92 20 95/63 (74) 98 10/24/19 08:00 96 10/24/19 04:00 Room Air 10/24/19 04:00 98.2 74 20 90/51 (64) 100 10/24/19 03:34 96 10/24/19 02:45 93 114/62 (79) 10/24/19 00:00 98.0 86 20 95/54 (68) 100 10/24/19 00:00 Room Air 10/23/19 23:28 87 10/23/19 20:00 Room Air 10/23/19 20:00 98.2 87 20 115/67 (83) 100 10/23/19 19:34 93 10/23/19 17:57 97.0 10/23/19 16:00 97.0 89 19 102/63 (76) 97 10/23/19 16:00 Room Air 10/23/19 16:00 111 Intake and Output 10/23/19 10/24/19 19:00 07:00 Intake Total 575 ml 1832.1 ml Output Total 500 ml 700 ml Balance 75 ml 1132.1 ml Intake Oral 450 ml 500 ml IV Total 125 ml 1332.1 ml Stool Total 500 ml 700 ml # Voids 4 3 # Bowel Movements 3 3 Laboratory Tests 10/23/19 16:00: Sodium Level 132L, Potassium Level 3.2L, Chloride Level 100, Carbon Dioxide Level 15L, Anion Gap 17H, Blood Urea Nitrogen 64H, Creatinine 1.6H, Estimat Glomerular Filtration Rate 44.2, Glucose Level 167H, Calcium Level 8.9 10/24/19 06:30: Sodium Level 135L, Potassium Level 3.1L, Chloride Level 103, Carbon Dioxide Level 16L, Anion Gap 17H, Blood Urea Nitrogen 53H, Creatinine 1.6H, Estimat Glomerular Filtration Rate 44.2, Glucose Level 142H, Calcium Level 8.9, White Blood Count 13.8H, Red Blood Count 4.37L, Hemoglobin 11.2L, Hematocrit 33.3L, Mean Corpuscular Volume 76L, Mean Corpuscular Hemoglobin 25.6L, Mean Corpuscular Hemoglobin Concent 33.6, Red Cell Distribution Width 13.3, Platelet Count 395, Mean Platelet Volume 5.5L, Neutrophils (%) (Auto) , Lymphocytes (%) ( Auto) , Monocytes (%) (Auto) , Eosinophils (%) (Auto) , Basophils (%) (Auto) , Differential Total Cells Counted 100, Neutrophils % (Manual) 97H, Lymphocytes % (Manual) 2L, Monocytes % (Manual) 1, Eosinophils % (Manual) 0, Basophils % ( Manual) 0, Band Neutrophils 0, Platelet Estimate Adequate, Platelet Morphology Normal, Anisocytosis 1+, Microcytosis 1+, Uric Acid 3.0, Phosphorus Level 2.4L, Magnesium Level 1.9, Total Bilirubin 0.3, Gamma Glutamyl Transpeptidase 378H, Aspartate Amino Transf (AST/SGOT) 24, Alanine Aminotransferase (ALT/SGPT) 46, Alkaline Phosphatase 358H, C-Reactive Protein, Quantitative 9.6H, Pro-B-Type Natriuretic Peptide 1818H, Total Protein 7.4, Albumin 3.0L, Globulin 4.4, Albumin/Globulin Ratio 0.7L, Random Vancomycin Level 16.4 Height (Feet): 5 Height (Inches): 6.00 Weight (Pounds): 130 General Appearance: moderate distress EENT: PERRL/EOMI Neck: normal alignment Cardiovascular: normal rate Respiratory/Chest: lungs clear Extremities: normal range of motion, non-tender, other - left ankle without edema or tenderness to touch-palpation 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
[2019-10-24] MEDS: Phospha 250 Neutral tab ORAL SCH (17:30)
[2019-10-24] MEDS ORDERED: DiphenhydrAMINE 25mg Tab ORAL PRN (21:00)
[2019-10-24] MEDS ORDERED: Tamsulosin 0.4mg cap ORAL SCH (21:00)
[2019-10-24] MEDS ORDERED: cefTRIAXone 1 GM in D5W 55 ML IVPB SCH (22:00)
[2019-10-25] VITALS (7 sets, daily range): BP systolic 94–119; BP diastolic 56–75
[2019-10-25] MEDS: Sodium Citrate 30ml ORAL SCH ×5 (00:35→17:34)
[2019-10-25] MEDS: NS w/KCl 20mEq 1000ml 1,000 ML IV SCH ×2 (00:36→15:15)
[2019-10-25] MEDS: oxyCODONE HCL/Acetaminophen 5/325mg ORAL PRN ×4 (02:48→21:47)
[2019-10-25] MEDS ORDERED: Miralax 17gm pkt ORAL PRN ×2 (07:30→15:30)
[2019-10-25 08:53] LABS: HEMATOCRIT 33.8 % (42.0-52.0); HEMOGLOBIN 11.2 G/DL (14.2-18.0); MEAN CORPUSCULAR VOLUME 77 FL (80-99); PLATELET COUNT 421 K/UL (150-450); RED BLOOD COUNT 4.38 M/UL (4.70-6.10); RED CELL DISTRIBUTION WIDTH 13.5 % (11.6-14.8); WHITE BLOOD COUNT 12.9 K/UL (4.8-10.8)
[2019-10-25] MEDS: Docusate 100mg cap ORAL SCH ×3 (09:00→17:32)
[2019-10-25] MEDS: Phospha 250 Neutral tab ORAL SCH ×3 (09:00→17:32)
[2019-10-25] MEDS ORDERED: Enoxaparin 40mg Inj SUBQ SCH (09:18)
[2019-10-25 09:25] LABS: ALANINE AMINOTRANSFERASE 47 U/L (12-78); ALBUMIN 2.9 G/DL (3.4-5.0); ALBUMIN/GLOBULIN RATIO 0.7 (1.0-2.7); ALKALINE PHOSPHATASE 330 U/L (46-116); ANION GAP 17 mmol/L (5-15); ASPARTATE AMINO TRANSFERASE 24 U/L (15-37); BILIRUBIN,TOTAL 0.2 MG/DL (0.2-1.0); BLOOD UREA NITROGEN 45 mg/dL (7-18); CALCIUM 8.4 MG/DL (8.5-10.1); CARBON DIOXIDE 13 MMOL/L (21-32); CHLORIDE 108 MMOL/L (98-107); CREATININE 1.5 MG/DL (0.55-1.30); PHOSPHORUS 2.6 MG/DL (2.5-4.9); POTASSIUM 3.5 MMOL/L (3.5-5.1); SODIUM 138 MMOL/L (136-145)
--- NOTE | 2019-10-25 09:47 | Nephrology Progress Note ---
Assessment/Plan Problem List: (1) VELASQUEZ (acute kidney injury) (2) UTI (urinary tract infection) (3) Hyponatremia (4) Hypokalemia (5) Dehydration Assessment Acute renal failure, mainly prerenal azotemia, mainly dehydration Underlying chronic kidney disease cannot be ruled out Severe hyponatremia Hypokalemia Urinary tract infection, sepsis Hypoalbuminemia, elevated liver enzymes Plan Saline infusion Bicitra p.o. Potassium supplement Monitor renal parameters and intake and output Monitor electrolytes Avoid nephrotoxic's Subjective ROS Limited/Unobtainable: No Constitutional: Reports: malaise, weakness Objective Objective Last 24 Hour Vital Signs Date Time Temp Pulse Resp B/P (MAP) Pulse Ox O2 Delivery O2 Flow Rate FiO2 10/25/19 04:00 99.6 98 18 101/71 (81) 97 10/25/19 04:00 98 10/25/19 00:00 101 10/25/19 00:00 98.6 95 19 109/66 (80) 99 10/24/19 21:00 Room Air 10/24/19 20:00 99.3 89 18 106/61 (76) 100 10/24/19 20:00 89 10/24/19 18:11 97.8 10/24/19 16:00 97.8 96 20 114/66 (82) 99 10/24/19 16:00 84 10/24/19 12:00 96.7 80 20 102/66 (78) 96 10/24/19 12:00 94 Intake and Output 10/24/19 10/25/19 19:00 07:00 Intake Total 590 ml 430 ml Output Total 900 ml 550 ml Balance -310 ml -120 ml Intake Oral 590 ml 430 ml Stool Total 900 ml 550 ml # Voids 2 2 # Bowel Movements 1 1 Laboratory Tests 10/25/19 07:55: White Blood Count 12.9H, Red Blood Count 4.38L, Hemoglobin 11.2L, Hematocrit 33.8L, Mean Corpuscular Volume 77L, Mean Corpuscular Hemoglobin 25.6L, Mean Corpuscular Hemoglobin Concent 33.2, Red Cell Distribution Width 13.5, Platelet Count 421, Mean Platelet Volume 5.2L, Neutrophils (%) (Auto) , Lymphocytes (%) ( Auto) , Monocytes (%) (Auto) , Eosinophils (%) (Auto) , Basophils (%) (Auto) , Neutrophils % (Manual) [Pending], Lymphocytes % (Manual) [Pending], Platelet Estimate [Pending], Platelet Morphology [Pending], Sodium Level 138, Potassium Level 3.5, Chloride Level 108H, Carbon Dioxide Level 13L, Anion Gap 17H, Blood Urea Nitrogen 45H, Creatinine 1.5H, Estimat Glomerular Filtration Rate 47.6, Glucose Level 105, Uric Acid 2.5L, Calcium Level 8.4L, Phosphorus Level 2.6, Magnesium Level 1.9, Total Bilirubin 0.2, Aspartate Amino Transf (AST/SGOT) 24, Alanine Aminotransferase (ALT/SGPT) 47, Alkaline Phosphatase 330H, C-Reactive Protein, Quantitative 7.3H, Pro-B-Type Natriuretic Peptide 1113H, Total Protein 7.2, Albumin 2.9L, Globulin 4.3, Albumin/Globulin Ratio 0.7L Height (Feet): 5 Height (Inches): 6.00 Weight (Pounds): 130 General Appearance: no apparent distress Cardiovascular: tachycardia Respiratory/Chest: decreased breath sounds Abdomen: soft Objective no change Luther Montgomery MD Oct 25, 2019 09:46
[2019-10-25] MEDS ORDERED: NS w/KCl 20mEq 1000ml 1,000 ML IV SCH (10:00)
--- NOTE | 2019-10-25 12:54 | General Progress Note ---
Assessment/Plan Status: stable Assessment/Plan: 63 /o male s/p rectal resection due to malignancy and cystoprostatectomy with ileal conduit admitted with: # Sepsis due to UTI IVF Ceftriaxone will be stopped and continue Vancomycin for Enterococcus UTI. Sensitivities reviewed. Monitor CBC. WBC is downtrending # Acute renal failure due to dehydration IVF Renal consult with Dr. Montgomery. Monitor renal function and electrolyte function. Acid base status. AG metabolic acidosis. Bicitra 30 ml q 6 hr Creatinine improved # Hypokalemia Replete with IVF Monitor closely. Telemetry # Metabolic acidosis Monitor Acid Base status BMP and Bicitra #History of rectal cancer s/p resection and cystoprostatectomy with ileal conduit Colostomy care Pain control. Baseline he uses Oxycodone 10 mg PRN q 4-6 hr # DVT ppx Enoxaparin # GI ppx Pepcid # PT evaluation appreciated and needs to continue. # Stable to transfer to Med Surg floor. # FULL CODE Subjective Date patient seen: Oct 25, 2019 Time patient seen: 12:30 ROS Limited/Unobtainable: No Allergies: Coded Allergies: CHLORPROMAZINE (Verified Allergy, Unknown, 10/21/19) GABAPENTIN (Verified Allergy, Unknown, 10/21/19) TEMSIROLIMUS (Verified Allergy, Unknown, 10/21/19) All Systems: reviewed and negative except above Subjective He was able to work with PT and still feels very unsteady while taking steps due to neuropathy and weakness. His colostomy is full with liquid stool. Objective Last 24 Hour Vital Signs Date Time Temp Pulse Resp B/P (MAP) Pulse Ox O2 Delivery O2 Flow Rate FiO2 10/25/19 04:00 99.6 98 18 101/71 (81) 97 10/25/19 04:00 98 10/25/19 00:00 101 10/25/19 00:00 98.6 95 19 109/66 (80) 99 10/24/19 21:00 Room Air 10/24/19 20:00 99.3 89 18 106/61 (76) 100 10/24/19 20:00 89 10/24/19 18:11 97.8 10/24/19 16:00 97.8 96 20 114/66 (82) 99 10/24/19 16:00 84 Intake and Output 10/24/19 10/25/19 19:00 07:00 Intake Total 590 ml 430 ml Output Total 900 ml 550 ml Balance -310 ml -120 ml Intake Oral 590 ml 430 ml Stool Total 900 ml 550 ml # Voids 2 2 # Bowel Movements 1 1 Laboratory Tests 10/25/19 07:55: White Blood Count 12.9H, Red Blood Count 4.38L, Hemoglobin 11.2L, Hematocrit 33.8L, Mean Corpuscular Volume 77L, Mean Corpuscular Hemoglobin 25.6L, Mean Corpuscular Hemoglobin Concent 33.2, Red Cell Distribution Width 13.5, Platelet Count 421, Mean Platelet Volume 5.2L, Neutrophils (%) (Auto) , Lymphocytes (%) ( Auto) , Monocytes (%) (Auto) , Eosinophils (%) (Auto) , Basophils (%) (Auto) , Differential Total Cells Counted 100, Neutrophils % (Manual) 89H, Lymphocytes % (Manual) 7L, Monocytes % (Manual) 2, Eosinophils % (Manual) 1, Basophils % ( Manual) 1, Band Neutrophils 0, Platelet Estimate Adequate, Platelet Morphology Normal, Hypochromasia 1+, Microcytosis 1+, Sodium Level 138, Potassium Level 3.5 , Chloride Level 108H, Carbon Dioxide Level 13L, Anion Gap 17H, Blood Urea Nitrogen 45H, Creatinine 1.5H, Estimat Glomerular Filtration Rate 47.6, Glucose Level 105, Uric Acid 2.5L, Calcium Level 8.4L, Phosphorus Level 2.6, Magnesium Level 1.9, Total Bilirubin 0.2, Aspartate Amino Transf (AST/SGOT) 24, Alanine Aminotransferase (ALT/SGPT) 47, Alkaline Phosphatase 330H, C-Reactive Protein, Quantitative 7.3H, Pro-B-Type Natriuretic Peptide 1113H, Total Protein 7.2, Albumin 2.9L, Globulin 4.3, Albumin/Globulin Ratio 0.7L Height (Feet): 5 Height (Inches): 6.00 Weight (Pounds): 130 General Appearance: WD/WN EENT: PERRL/EOMI Neck: non-tender Cardiovascular: normal rate Respiratory/Chest: lungs clear Abdomen: soft, other - colostomy in place and full with liquid stool Extremities: normal range of motion Neurologic: purchasing administrator II-XII grossly normal Aminah Torres MD Oct 25, 2019 12:54
[2019-10-25] MEDS ORDERED: DiphenhydrAMINE 25mg Tab ORAL PRN ×2 (13:00→15:30)
[2019-10-25] MEDS ORDERED: Morphine Sulfate 2mg/ml Inj(IV/IM USE ONLY) IVP PRN (15:30)
[2019-10-25] MEDS ORDERED: Morphine Sulfate 4mg/ml Inj (IV USE ONLY) IVP PRN (15:30)
[2019-10-25] MEDS: Tamsulosin 0.4mg cap ORAL SCH (20:56)
[2019-10-26] MEDS: NS w/KCl 20mEq 1000ml 1,000 ML IV SCH (01:10)
[2019-10-26 04:00] VITALS: BP 99/62
[2019-10-26] MEDS: oxyCODONE HCL/Acetaminophen 5/325mg ORAL PRN ×4 (04:13→20:02)
[2019-10-26] MEDS: Sodium Citrate 30ml ORAL SCH ×5 (05:43→18:00)
[2019-10-26 06:41] LABS: HEMATOCRIT 26.7 % (42.0-52.0); MEAN CORPUSCULAR VOLUME 77 FL (80-99); PLATELET COUNT 334 K/UL (150-450); RED BLOOD COUNT 3.48 M/UL (4.70-6.10); RED CELL DISTRIBUTION WIDTH 13.5 % (11.6-14.8); WHITE BLOOD COUNT 12.9 K/UL (4.8-10.8)
[2019-10-26 07:33] LABS: ANION GAP 16 mmol/L (5-15); BLOOD UREA NITROGEN 41 mg/dL (7-18); CALCIUM 8.1 MG/DL (8.5-10.1); CARBON DIOXIDE 13 MMOL/L (21-32); CHLORIDE 108 MMOL/L (98-107); CREATININE 1.5 MG/DL (0.55-1.30); PHOSPHORUS 2.9 MG/DL (2.5-4.9); POTASSIUM 3.6 MMOL/L (3.5-5.1); SODIUM 136 MMOL/L (136-145)
[2019-10-26 08:00] VITALS: BP 94/60
[2019-10-26] MEDS: Enoxaparin 40mg Inj SUBQ SCH (08:47)
[2019-10-26] MEDS: Docusate 100mg cap ORAL SCH ×3 (08:48→18:00)
[2019-10-26] MEDS: Phospha 250 Neutral tab ORAL SCH ×3 (08:50→18:58)
--- NOTE | 2019-10-26 09:38 | Nephrology Progress Note ---
Assessment/Plan Problem List: (1) VELASQUEZ (acute kidney injury) (2) UTI (urinary tract infection) (3) Hyponatremia (4) Hypokalemia (5) Dehydration Assessment Acute renal failure, mainly prerenal azotemia, mainly dehydration Underlying chronic kidney disease cannot be ruled out Severe hyponatremia Hypokalemia Urinary tract infection, sepsis Hypoalbuminemia, elevated liver enzymes Plan Stop IV fluid Bicitra p.o. and KCl and mag oxide Monitor renal parameters and intake and output Monitor electrolytes Avoid nephrotoxic's Subjective ROS Limited/Unobtainable: No Constitutional: Reports: malaise Objective Objective Last 24 Hour Vital Signs Date Time Temp Pulse Resp B/P (MAP) Pulse Ox O2 Delivery O2 Flow Rate FiO2 10/26/19 09:03 Room Air 10/26/19 08:00 98.1 86 20 94/60 (71) 100 10/26/19 04:00 97.9 99 20 99/62 (74) 100 10/25/19 23:49 98.1 92 18 94/56 (69) 100 10/25/19 21:00 Room Air 10/25/19 20:00 98.4 92 18 101/62 (75) 98 10/25/19 18:18 98.1 10/25/19 16:00 98.1 96 19 110/75 (87) 99 10/25/19 12:00 98.4 93 19 113/72 (86) 96 Intake and Output 10/25/19 10/26/19 19:00 07:00 Intake Total 375 ml 1250 ml Output Total 330 ml 950 ml Balance 45 ml 300 ml Intake Oral 300 ml 950 ml IV Total 75 ml 300 ml Stool Total 330 ml 950 ml # Voids 2 # Bowel Movements 1 1 Current Medications Medications (Trade) Dose Ordered Sig/Natanael Route PRN Reason Start Time Stop Time Status Last Admin Dose Admin Acetaminophen (Tylenol) 650 mg Q4H PRN ORAL T>100.5/Mild Pain 10/25/19 15:45 11/21/19 05:59 Dextrose (Dextrose 50%) 25 ml Q30M PRN IV Hypoglycemia 10/25/19 15:30 01/20/20 05:59 Dextrose (Dextrose 50%) 50 ml Q30M PRN IV Hypoglycemia 10/25/19 15:30 01/20/20 05:59 Diphenhydramine HCl (Benadryl) 50 mg Q8H PRN ORAL Itching 10/25/19 15:30 11/24/19 15:29 Docusate Sodium (Colace) 100 mg TID ORAL 10/25/19 18:00 11/21/19 08:59 10/26/19 08:48 Enoxaparin Sodium (Lovenox) 40 mg DAILY SUBQ 10/26/19 09:00 01/23/20 09:17 10/26/19 08:47 Magnesium Oxide (Mag-Ox 400mg) 400 mg THREE TIMES A DAY ORAL 10/26/19 13:00 11/25/19 12:59 UNV Morphine Sulfate (Morphine Sulfate) 2 mg Q3H PRN IVP Moderate Pain (Pain Scale 4-6) 10/25/19 15:30 10/29/19 15:29 Morphine Sulfate (Morphine Sulfate) 4 mg Q3H PRN IVP Severe Pain (Pain Scale 7-10) 10/25/19 15:30 10/29/19 15:29 Ondansetron HCl (Zofran) 4 mg Q6H PRN IVP Nausea & Vomiting 10/25/19 15:30 11/21/19 15:29 Oxycodone/ Acetaminophen (Percocet 5-325) 1 tab Q4H PRN ORAL Breakthrough Pain 10/25/19 15:30 10/30/19 15:29 10/26/19 08:45 Pantoprazole (Protonix) 40 mg EVERY 12 HOURS ORAL 10/25/19 21:00 11/21/19 20:59 10/26/19 08:51 Phosphorus (Phospha 250 Neutral) 250 mg THREE TIMES A DAY ORAL 10/25/19 18:00 11/23/19 17:59 10/26/19 08:50 Polyethylene Glycol (Miralax) 17 gm DAILYPRN PRN ORAL Constipation 10/25/19 15:30 11/24/19 15:29 Potassium Chloride (K-Dur) 40 meq DAILY ORAL 10/27/19 09:00 01/25/20 08:59 UNV Potassium Chloride (K-Dur) 40 meq TWICE A DAY ORAL 10/25/19 18:00 01/21/20 19:14 10/26/19 08:50 Sodium Citrate (Bicitra) 30 ml EVERY 6 HOURS ORAL 10/25/19 18:00 11/21/19 14:14 10/26/19 06:24 Tamsulosin HCl (Flomax) 0.4 mg BEDTIME ORAL 10/25/19 21:00 11/21/19 20:59 10/25/19 20:56 Vancomycin HCl (Vanco rx to dose) 1 ea DAILY PRN MISC Per rx protocol 10/26/19 09:00 11/21/19 20:59 Vancomycin/Sodium Chloride 275 ml @ 183.333 mls/hr ONCE ONCE IVPB 10/26/19 10:00 10/26/19 11:29 Laboratory Tests 10/26/19 05:20: White Blood Count 12.9H, Red Blood Count 3.48L, Hemoglobin 9.0L, Hematocrit 26.7L, Mean Corpuscular Volume 77L, Mean Corpuscular Hemoglobin 25.8L, Mean Corpuscular Hemoglobin Concent 33.6, Red Cell Distribution Width 13.5, Platelet Count 334, Mean Platelet Volume 5.1L, Neutrophils (%) (Auto) , Lymphocytes (%) ( Auto) , Monocytes (%) (Auto) , Eosinophils (%) (Auto) , Basophils (%) (Auto) , Neutrophils % (Manual) [Pending], Lymphocytes % (Manual) [Pending], Platelet Estimate [Pending], Platelet Morphology [Pending], Sodium Level 136, Potassium Level 3.6, Chloride Level 108H, Carbon Dioxide Level 13L, Anion Gap 16H, Blood Urea Nitrogen 41H, Creatinine 1.5H, Estimat Glomerular Filtration Rate 47.6, Glucose Level 87, Calcium Level 8.1L, Phosphorus Level 2.9, Magnesium Level 1.6L , Random Vancomycin Level 12.3 Height (Feet): 5 Height (Inches): 6.00 Weight (Pounds): 130 General Appearance: no apparent distress Objective no change Luther Montgomery MD Oct 26, 2019 09:38
[2019-10-26] MEDS ORDERED: Vancomycin 1.25gm/NS Premix IVPB ONE (10:00)
[2019-10-26 11:50] VITALS: BP 97/69
[2019-10-26] MEDS ORDERED: Magnesium Oxide 400mg tab ORAL SCH (13:00)
--- NOTE | 2019-10-26 15:12 | General Progress Note ---
Assessment/Plan Status: stable Assessment/Plan: 63 /o male s/p rectal resection due to malignancy and cystoprostatectomy with ileal conduit admitted with: # Sepsis due to UTI IVF Ceftriaxone stopped 10/24 and continues on Vancomycin for Enterococcus UTI. Sensitivities reviewed. Monitor CBC. WBC is downtrending # Acute renal failure due to dehydration IVF stopped. Renal consult with Dr. Montgomery. Monitor renal function and electrolyte function. Acid base status. AG metabolic acidosis. Bicitra 30 ml q 6 hr Creatinine improved # Hypokalemia Monitor closely. Telemetry # Metabolic acidosis Monitor Acid Base status BMP and Bicitra #History of rectal cancer s/p resection and cystoprostatectomy with ileal conduit Colostomy care Pain control. Baseline he uses Oxycodone 10 mg PRN q 4-6 hr # DVT ppx Enoxaparin # GI ppx Pepcid # PT evaluation appreciated and needs to continue. # FULL CODE Subjective Date patient seen: Oct 26, 2019 Time patient seen: 15:00 Allergies: Coded Allergies: CHLORPROMAZINE (Verified Allergy, Unknown, 10/21/19) GABAPENTIN (Verified Allergy, Unknown, 10/21/19) TEMSIROLIMUS (Verified Allergy, Unknown, 10/21/19) All Systems: reviewed and negative except above Subjective He was able to work with PT. Feeling better today. Objective Last 24 Hour Vital Signs Date Time Temp Pulse Resp B/P (MAP) Pulse Ox O2 Delivery O2 Flow Rate FiO2 10/26/19 11:50 98.3 92 20 97/69 (78) 100 10/26/19 09:03 Room Air 10/26/19 08:00 98.1 86 20 94/60 (71) 100 10/26/19 04:00 97.9 99 20 99/62 (74) 100 10/25/19 23:49 98.1 92 18 94/56 (69) 100 10/25/19 21:00 Room Air 10/25/19 20:00 98.4 92 18 101/62 (75) 98 10/25/19 18:18 98.1 10/25/19 16:00 98.1 96 19 110/75 (87) 99 Intake and Output 10/25/19 10/26/19 19:00 07:00 Intake Total 375 ml 1250 ml Output Total 330 ml 950 ml Balance 45 ml 300 ml Intake Oral 300 ml 950 ml IV Total 75 ml 300 ml Stool Total 330 ml 950 ml # Voids 2 # Bowel Movements 1 1 Laboratory Tests 10/26/19 05:20: White Blood Count 12.9H, Red Blood Count 3.48L, Hemoglobin 9.0L, Hematocrit 26.7L, Mean Corpuscular Volume 77L, Mean Corpuscular Hemoglobin 25.8L, Mean Corpuscular Hemoglobin Concent 33.6, Red Cell Distribution Width 13.5, Platelet Count 334, Mean Platelet Volume 5.1L, Neutrophils (%) (Auto) , Lymphocytes (%) ( Auto) , Monocytes (%) (Auto) , Eosinophils (%) (Auto) , Basophils (%) (Auto) , Differential Total Cells Counted 100, Neutrophils % (Manual) 91H, Lymphocytes % (Manual) 2L, Monocytes % (Manual) 4, Eosinophils % (Manual) 3, Basophils % ( Manual) 0, Band Neutrophils 0, Platelet Estimate Adequate, Platelet Morphology Normal, Microcytosis 2+, Sodium Level 136, Potassium Level 3.6, Chloride Level 108H, Carbon Dioxide Level 13L, Anion Gap 16H, Blood Urea Nitrogen 41H, Creatinine 1.5H, Estimat Glomerular Filtration Rate 47.6, Glucose Level 87, Calcium Level 8.1L, Phosphorus Level 2.9, Magnesium Level 1.6L, Random Vancomycin Level 12.3 Height (Feet): 5 Height (Inches): 6.00 Weight (Pounds): 130 General Appearance: WD/WN EENT: PERRL/EOMI Neck: non-tender, normal alignment Cardiovascular: normal rate Respiratory/Chest: lungs clear Abdomen: non tender Neurologic: clinic assistant II-XII grossly normal Aminah Torres MD Oct 26, 2019 15:12
[2019-10-26 16:01] VITALS: BP 97/67
[2019-10-26] MEDS: Magnesium Oxide 400mg tab ORAL SCH (18:58)
[2019-10-26 20:00] VITALS: BP 103/70
[2019-10-26] MEDS: Tamsulosin 0.4mg cap ORAL SCH (21:15)
--- NOTE | 2019-10-26 21:22 | Consultation ---
History of Present Illness General Reason for Hospitalization: Abnormal Labs Present Illness HPI Asked to see by Dr. Torres for colostomy site issues. 63 year old male with extensive medical and surgical history who was noted to have colostomy irritation with change of bag. surgery called to evaluate colostomy site and assist with care and management. Patient was seen examined bedside. He states he had a colostomy after rectal cancer in July. He states he woke up from 6- hour surgery and was told that part of his bladder was removed as well as the cancer but he was given a colostomy. He has been very upset since. States that he notes leakage often. States he cannot change the bags or care for himself and requires constant care from neuropathy noted prior. No nausea vomiting fever chills. Identifies the skin changes when evaluated at the bedside on the right abdomen. Labs reviewed. Imaging reviewed. Allergies: Coded Allergies: CHLORPROMAZINE (Verified Allergy, Unknown, 10/21/19) GABAPENTIN (Verified Allergy, Unknown, 10/21/19) TEMSIROLIMUS (Verified Allergy, Unknown, 10/21/19) COVID-19 Screening Contact w/high risk pt: No Recent Travel to affected area: No Experienced COVID-19 symptoms?: No Medication History Scheduled Loperamide Hcl (Imodium A-D), 2 CAP PO BID, (Reported) Scheduled PRN Acetaminophen* (Tylenol Extra Strength*), 1,000 MG ORAL Q6H PRN for Mild Pain/ Temp > 100.5, (Reported) Diphenhydramine Hcl* (Benadryl Allergy*), 25 MG ORAL BEDTIME PRN for insomnia, ( Reported) Ondansetron Odt* (Zofran Odt*), 4 MG ORAL Q6H PRN for Nausea & Vomiting, ( Reported) Oxycodone Hcl (Oxycodone Hcl), 5 MG ORAL BID PRN for For Pain, (Reported) Patient History Limited by: medical condition History Provided By: Medical Record, PMD Healthcare decision maker Resuscitation status Full Code Advanced Directive on File Past Medical/Surgical History Past Medical/Surgical History: (1) Weakness (2) Dehydration (3) Hypokalemia (4) Hyponatremia (5) UTI (urinary tract infection) (6) VELASQUEZ (acute kidney injury) Review of Systems Review of Symptoms General ROS: no weight loss or fever Psychological ROS: no depression or mood changes, no memory loss Ophthalmic ROS: no visual changes or eye irritation ENT ROS: no nasal congestion, hearing loss, dizziness Allergy and Immunology ROS: no allergic symptoms or urticaria Hematological and Lymphatic ROS: no swollen glands, unusual bleeding or bruising Endocrine ROS: no polyuria, polydipsia, weight changes, temperature intolerance Respiratory ROS: no cough, shortness of breath, or wheezing Cardiovascular ROS: no chest pain or dyspnea on exertion Gastrointestinal ROS: denies abdominal pain, bright red blood in stool. Musculoskeletal ROS: no myalgias or arthralgias Neurological ROS: no TIA or stroke symptoms Dermatological ROS: no new or changing skin lesions, rashes or pruritis Physical Exam Physical Exam General appearance: alert, cooperative, no distress, appears stated age Head: Normocephalic, without obvious abnormality, atraumatic Eyes: conjunctivae/corneas clear. PERRL, EOM's intact. Fundi benign Throat: Lips, mucosa, and tongue normal. Teeth and gums normal Neck: supple, symmetrical, trachea midline, no adenopathy, thyroid: not enlarged, symmetric, no tenderness/mass/nodules, no carotid bruit and no JVD Lungs: clear to auscultation bilaterally Heart: regular rate and rhythm, S1, S2 normal, no murmur, click, rub or gallop Abdomen: soft, non-tender. Bowel sounds normal. No masses, no organomegaly, colostomy right lower abdomen. Almost seemingly potentially an ileostomy given its appearance and consistency of output. Will need operative reports for further details. Skin irritation identified on the right pelvis and abdomen and flank from leakage. Extremities: extremities normal, atraumatic, no cyanosis or edema Pulses: 2+ and symmetric Skin: Skin color, texture, turgor normal. No rashes or lesions Neurologic: Grossly normal Last 24 Hour Vital Signs Date Time Temp Pulse Resp B/P (MAP) Pulse Ox O2 Delivery O2 Flow Rate FiO2 10/26/19 20:00 98.5 100 18 103/70 (81) 100 10/26/19 16:16 98.1 10/26/19 16:01 98.1 94 20 97/67 (77) 99 10/26/19 11:50 98.3 92 20 97/69 (78) 100 10/26/19 09:03 Room Air 10/26/19 08:00 98.1 86 20 94/60 (71) 100 4/17/20 04:00 97.9 99 20 99/62 (74) 100 10/25/19 23:49 98.1 92 18 94/56 (69) 100 Intake and Output 10/25/19 10/26/19 19:00 07:00 Intake Total 375 ml 1325 ml Output Total 330 ml 950 ml Balance 45 ml 375 ml Intake Oral 300 ml 950 ml IV Total 75 ml 375 ml Stool Total 330 ml 950 ml # Voids 2 # Bowel Movements 1 1 Laboratory Tests Test 10/26/19 05:20 White Blood Count 12.9 K/UL (4.8-10.8) H Red Blood Count 3.48 M/UL (4.70-6.10) L Hemoglobin 9.0 G/DL (14.2-18.0) L Hematocrit 26.7 % (42.0-52.0) L Mean Corpuscular Volume 77 FL (80-99) L Mean Corpuscular Hemoglobin 25.8 PG (27.0-31.0) L Mean Corpuscular Hemoglobin Concent 33.6 G/DL (32.0-36.0) Red Cell Distribution Width 13.5 % (11.6-14.8) Platelet Count 334 K/UL (150-450) Mean Platelet Volume 5.1 FL (6.5-10.1) L Neutrophils (%) (Auto) % (45.0-75.0) Lymphocytes (%) (Auto) % (20.0-45.0) Monocytes (%) (Auto) % (1.0-10.0) Eosinophils (%) (Auto) % (0.0-3.0) Basophils (%) (Auto) % (0.0-2.0) Differential Total Cells Counted 100 Neutrophils % (Manual) 91 % (45-75) H Lymphocytes % (Manual) 2 % (20-45) L Monocytes % (Manual) 4 % (1-10) Eosinophils % (Manual) 3 % (0-3) Basophils % (Manual) 0 % (0-2) Band Neutrophils 0 % (0-8) Platelet Estimate Adequate Platelet Morphology Normal Microcytosis 2+ Sodium Level 136 MMOL/L (136-145) Potassium Level 3.6 MMOL/L (3.5-5.1) Chloride Level 108 MMOL/L (98-107) H Carbon Dioxide Level 13 MMOL/L (21-32) L Anion Gap 16 mmol/L (5-15) H Blood Urea Nitrogen 41 mg/dL (7-18) H Creatinine 1.5 MG/DL (0.55-1.30) H Estimat Glomerular Filtration Rate 47.6 mL/min (>60) Glucose Level 87 MG/DL (74-106) Calcium Level 8.1 MG/DL (8.5-10.1) L Phosphorus Level 2.9 MG/DL (2.5-4.9) Magnesium Level 1.6 MG/DL (1.8-2.4) L Random Vancomycin Level 12.3 ug/mL Height (Feet): 5 Height (Inches): 6.00 Weight (Pounds): 130 Medications Current Medications Medications (Trade) Dose Ordered Sig/Natanael Route PRN Reason Start Time Stop Time Status Last Admin Dose Admin Acetaminophen (Tylenol) 650 mg Q4H PRN ORAL T>100.5/Mild Pain 10/25/19 15:45 11/21/19 05:59 Dextrose (Dextrose 50%) 25 ml Q30M PRN IV Hypoglycemia 10/25/19 15:30 01/20/20 05:59 Dextrose (Dextrose 50%) 50 ml Q30M PRN IV Hypoglycemia 10/25/19 15:30 01/20/20 05:59 Diphenhydramine HCl (Benadryl) 50 mg Q8H PRN ORAL Itching 10/26/19 11:45 11/25/19 11:44 Docusate Sodium (Colace) 100 mg TID ORAL 10/25/19 18:00 11/21/19 08:59 10/26/19 08:48 Enoxaparin Sodium (Lovenox) 40 mg DAILY SUBQ 10/26/19 09:00 01/23/20 09:17 10/26/19 08:47 Magnesium Oxide (Mag-Ox 400mg) 400 mg THREE TIMES A DAY ORAL 10/26/19 18:00 10/27/19 17:59 10/26/19 18:58 Morphine Sulfate (Morphine Sulfate) 2 mg Q3H PRN IVP Moderate Pain (Pain Scale 4-6) 10/25/19 15:30 10/29/19 15:29 10/26/19 11:37 Morphine Sulfate (Morphine Sulfate) 4 mg Q3H PRN IVP Severe Pain (Pain Scale 7-10) 10/25/19 15:30 10/29/19 15:29 Ondansetron HCl (Zofran) 4 mg Q6H PRN IVP Nausea & Vomiting 10/25/19 15:30 11/21/19 15:29 Oxycodone/ Acetaminophen (Percocet 5-325) 1 tab Q4H PRN ORAL Breakthrough Pain 10/25/19 15:30 10/30/19 15:29 10/26/19 20:02 Pantoprazole (Protonix) 40 mg EVERY 12 HOURS ORAL 10/25/19 21:00 11/21/19 20:59 10/26/19 08:51 Phosphorus (Phospha 250 Neutral) 250 mg THREE TIMES A DAY ORAL 10/25/19 18:00 11/23/19 17:59 10/26/19 18:58 Polyethylene Glycol (Miralax) 17 gm DAILYPRN PRN ORAL Constipation 10/25/19 15:30 11/24/19 15:29 Potassium Chloride (K-Dur) 40 meq DAILY ORAL 10/27/19 09:00 01/25/20 08:59 Sodium Citrate (Bicitra) 30 ml EVERY 6 HOURS ORAL 10/25/19 18:00 11/21/19 14:14 10/26/19 06:24 Tamsulosin HCl (Flomax) 0.4 mg BEDTIME ORAL 10/25/19 21:00 11/21/19 20:59 10/25/19 20:56 Vancomycin HCl (Vanco rx to dose) 1 ea DAILY PRN MISC Per rx protocol 10/26/19 09:00 11/21/19 20:59 Assessment/Plan Problem List: (1) Colostomy complication Assessment & Plan: Patient with a ostomy since surgery in July at [facility] [place] for rectal cancer. States he woke up after 6-hour surgery was told that they took out a portion of his bladder and gave him an ostomy. He did not have an APR as he still has a rectum. He thinks he has a colostomy and very potential but also could potentially have a ileostomy as well given the consistency output of the evacuation into his bag. Will need operative for further details. The periwound has significant wound of skin breakdown from leakage. It is identified from the ostomy site all the way down to the right pelvis groin and flank. Patient states that when he leaks he does not clean himself up. He relies on nurses which she says are very poor caring for him. He states that all this should be taken care of and that no one sees him in should be cleaned and bag evacuated often. He is fully functioning as he eats on his own feeds himself drinks except soda bottles cans but states that he cannot care for his ostomy at all himself. He is fairly reluctant to learn or do that as well. I tried talking to him about and teaching him some care plan and instructions but he states if the nurses would do their job he would have to be dealing with this. At this time no surgical intervention necessary. Abdominal exam is benign and his midline incision from prior surgeries well-healed. His ostomy looks well in the right lower quadrant but there is skin changes around it which are fairly extensive from leakage. Would recommend skin protectant and very close monitoring for leakage. Change ostomy bag weekly and more often as necessary. Ostomy care and nursing staff to help. Patient should really try to learn how to assist with the care plan as granted he may not have fine touch and movement from his neuropathy he is stable to care for himself as he does feed himself and drink so therefore he could likely wipe himself clean if there is leakage noted until nursing staff can help him. Explained this in detail to patient. Okay for discharge from surgical standpoint. Thank you for let me participate in patient's care ICD Codes: K94.00 - Colostomy complication, unspecified SNOMED: [id number] Gary Alegre Oct 26, 2019 21:22
[2019-10-27] VITALS (7 sets, daily range): BP systolic 88–109; BP diastolic 59–71
[2019-10-27] MEDS: oxyCODONE HCL/Acetaminophen 5/325mg ORAL PRN ×5 (04:28→21:03)
[2019-10-27] MEDS: Sodium Citrate 30ml ORAL SCH ×4 (06:08→21:02)
[2019-10-27 06:13] LABS: HEMOGLOBIN 9.9 G/DL (14.2-18.0); MEAN CORPUSCULAR VOLUME 77 FL (80-99); PLATELET COUNT 364 K/UL (150-450); RED CELL DISTRIBUTION WIDTH 13.6 % (11.6-14.8); WHITE BLOOD COUNT 11.4 K/UL (4.8-10.8)
[2019-10-27 06:28] LABS: INR 1.1 (0.9-1.1)
[2019-10-27 06:41] LABS: ANION GAP 13 mmol/L (5-15); BLOOD UREA NITROGEN 40 mg/dL (7-18); CALCIUM 8.8 MG/DL (8.5-10.1); CARBON DIOXIDE 17 MMOL/L (21-32); CHLORIDE 106 MMOL/L (98-107); CREATININE 1.6 MG/DL (0.55-1.30); SODIUM 136 MMOL/L (136-145)
[2019-10-27] MEDS: Docusate 100mg cap ORAL SCH ×3 (08:58→17:26)
[2019-10-27] MEDS: Magnesium Oxide 400mg tab ORAL SCH ×2 (08:59→12:14)
[2019-10-27] MEDS: Phospha 250 Neutral tab ORAL SCH (08:59)
[2019-10-27] MEDS: Enoxaparin 40mg Inj SUBQ SCH (09:00)
--- NOTE | 2019-10-27 11:51 | Nephrology Progress Note ---
Assessment/Plan Problem List: (1) VELASQUEZ (acute kidney injury) (2) UTI (urinary tract infection) (3) Hyponatremia (4) Hypokalemia (5) Dehydration Assessment Acute renal failure, mainly prerenal azotemia, mainly dehydration Underlying chronic kidney disease cannot be ruled out Severe hyponatremia Hypokalemia Urinary tract infection, sepsis Hypoalbuminemia, elevated liver enzymes Plan Stop IV fluid, stop KCl, stop Neutra-Phos Bicitra p.o. Mag oxide p.o. Monitor renal parameters and intake and output Monitor electrolytes Avoid nephrotoxic's Subjective ROS Limited/Unobtainable: No Constitutional: Reports: malaise Objective Objective Last 24 Hour Vital Signs Date Time Temp Pulse Resp B/P (MAP) Pulse Ox O2 Delivery O2 Flow Rate FiO2 10/27/19 09:31 98.1 10/27/19 08:00 98.4 89 18 98/62 (74) 100 10/27/19 04:00 98.1 94 18 105/70 (82) 99 10/27/19 00:00 98.7 90 18 97/65 (76) 99 10/26/19 21:00 Room Air 10/26/19 20:00 98.5 100 18 103/70 (81) 100 10/26/19 16:01 98.1 94 20 97/67 (77) 99 Intake and Output 10/26/19 10/27/19 19:00 07:00 Intake Total 1775 ml 650 ml Output Total 1100 ml 1000 ml Balance 675 ml -350 ml Intake Oral 1400 ml 650 ml IV Total 375 ml Stool Total 1100 ml 1000 ml # Voids 4 # Bowel Movements 1 1 Laboratory Tests 10/27/19 04:40: White Blood Count 11.4H, Red Blood Count 3.90L, Hemoglobin 9.9L, Hematocrit 30.0L, Mean Corpuscular Volume 77L, Mean Corpuscular Hemoglobin 25.3L, Mean Corpuscular Hemoglobin Concent 32.9, Red Cell Distribution Width 13.6, Platelet Count 364, Mean Platelet Volume 5.1L, Neutrophils (%) (Auto) , Lymphocytes (%) ( Auto) , Monocytes (%) (Auto) , Eosinophils (%) (Auto) , Basophils (%) (Auto) , Differential Total Cells Counted 100, Neutrophils % (Manual) 94H, Lymphocytes % (Manual) 3L, Monocytes % (Manual) 2, Eosinophils % (Manual) 1, Basophils % ( Manual) 0, Band Neutrophils 0, Platelet Estimate Adequate, Platelet Morphology Normal, Microcytosis 2+, Erythrocyte Sedimentation Rate 113H, Prothrombin Time 11.2, Prothromb Time International Ratio 1.1, Activated Partial Thromboplast Time 39H, Sodium Level 136, Potassium Level 4.0, Chloride Level 106, Carbon Dioxide Level 17L, Anion Gap 13, Blood Urea Nitrogen 40H, Creatinine 1.6H, Estimat Glomerular Filtration Rate 44.2, Glucose Level 80, Calcium Level 8.8, Magnesium Level 1.5L, C-Reactive Protein, Quantitative 5.9H Height (Feet): 5 Height (Inches): 6.00 Weight (Pounds): 130 General Appearance: no apparent distress Objective no change Luther Montgomery MD Oct 27, 2019 11:51
--- NOTE | 2019-10-27 13:03 | General Progress Note ---
Assessment/Plan Status: stable Assessment/Plan: 63 /o male s/p rectal resection due to malignancy and cystoprostatectomy with ileal conduit admitted with: # Sepsis due to UTI IVF HL now Ceftriaxone stopped 10/24 and continues on Vancomycin for Enterococcus UTI. Sensitivities reviewed. Monitor CBC. WBC is downtrending # Acute renal failure due to dehydration IVF stopped. Renal consult with Dr. Montgomery. Monitor renal function and electrolyte function. Acid base status. AG metabolic acidosis. Bicitra 30 ml q 8 hr adjusted today. Creatinine improved # Hypokalemia, hypomagnesemia. Monitor closely. Most likely due to GI loss. Telemetry # Metabolic acidosis Monitor Acid Base status BMP and Bicitra in place. #History of rectal cancer s/p resection and cystoprostatectomy with ileal conduit Colostomy care and evaluation with surgery pending for today. Pain control. Baseline he uses Oxycodone 10 mg PRN q 4-6 hr # DVT ppx Enoxaparin # GI ppx Pepcid # PT evaluation appreciated and needs to continue. # FULL CODE Subjective Date patient seen: Oct 27, 2019 Time patient seen: 13:00 ROS Limited/Unobtainable: No Allergies: Coded Allergies: CHLORPROMAZINE (Verified Allergy, Unknown, 10/21/19) GABAPENTIN (Verified Allergy, Unknown, 10/21/19) TEMSIROLIMUS (Verified Allergy, Unknown, 10/21/19) Subjective He was able to work with PT. Feeling better today. No fever or chills. Objective Last 24 Hour Vital Signs Date Time Temp Pulse Resp B/P (MAP) Pulse Ox O2 Delivery O2 Flow Rate FiO2 10/27/19 12:00 98.8 95 18 109/71 (84) 97 10/27/19 09:31 98.1 10/27/19 08:00 98.4 89 18 98/62 (74) 100 10/27/19 04:00 98.1 94 18 105/70 (82) 99 10/27/19 00:00 98.7 90 18 97/65 (76) 99 10/26/19 21:00 Room Air 10/26/19 20:00 98.5 100 18 103/70 (81) 100 10/26/19 16:01 98.1 94 20 97/67 (77) 99 Intake and Output 10/26/19 10/27/19 19:00 07:00 Intake Total 1775 ml 650 ml Output Total 1100 ml 1000 ml Balance 675 ml -350 ml Intake Oral 1400 ml 650 ml IV Total 375 ml Stool Total 1100 ml 1000 ml # Voids 4 # Bowel Movements 1 1 Laboratory Tests 10/27/19 04:40: White Blood Count 11.4H, Red Blood Count 3.90L, Hemoglobin 9.9L, Hematocrit 30.0L, Mean Corpuscular Volume 77L, Mean Corpuscular Hemoglobin 25.3L, Mean Corpuscular Hemoglobin Concent 32.9, Red Cell Distribution Width 13.6, Platelet Count 364, Mean Platelet Volume 5.1L, Neutrophils (%) (Auto) , Lymphocytes (%) ( Auto) , Monocytes (%) (Auto) , Eosinophils (%) (Auto) , Basophils (%) (Auto) , Differential Total Cells Counted 100, Neutrophils % (Manual) 94H, Lymphocytes % (Manual) 3L, Monocytes % (Manual) 2, Eosinophils % (Manual) 1, Basophils % ( Manual) 0, Band Neutrophils 0, Platelet Estimate Adequate, Platelet Morphology Normal, Microcytosis 2+, Erythrocyte Sedimentation Rate 113H, Prothrombin Time 11.2, Prothromb Time International Ratio 1.1, Activated Partial Thromboplast Time 39H, Sodium Level 136, Potassium Level 4.0, Chloride Level 106, Carbon Dioxide Level 17L, Anion Gap 13, Blood Urea Nitrogen 40H, Creatinine 1.6H, Estimat Glomerular Filtration Rate 44.2, Glucose Level 80, Calcium Level 8.8, Magnesium Level 1.5L, C-Reactive Protein, Quantitative 5.9H Height (Feet): 5 Height (Inches): 6.00 Weight (Pounds): 130 General Appearance: WD/WN EENT: PERRL/EOMI Neck: non-tender Cardiovascular: normal rate Respiratory/Chest: lungs clear Abdomen: non tender Neurologic: manager image II-XII grossly normal Aminah Torres MD Oct 27, 2019 13:03
[2019-10-27] MEDS ORDERED: NS 275ml ONE (14:05)
[2019-10-27] MEDS ORDERED: Tubing Blood Filter IV ONE (14:05)
[2019-10-27] MEDS ORDERED: Tubing IV Secondary IV ONE (14:05)
[2019-10-27] MEDS: Tamsulosin 0.4mg cap ORAL SCH (21:02)
[2019-10-28] MEDS: oxyCODONE HCL/Acetaminophen 5/325mg ORAL PRN ×4 (00:48→13:16)
[2019-10-28 04:00] VITALS: BP 100/60
[2019-10-28] MEDS: Sodium Citrate 30ml ORAL SCH (06:20)
[2019-10-28 08:00] VITALS: BP 99/63
[2019-10-28 08:41] LABS: ALANINE AMINOTRANSFERASE 39 U/L (12-78); ALBUMIN 2.7 G/DL (3.4-5.0); ALBUMIN/GLOBULIN RATIO 0.6 (1.0-2.7); ALKALINE PHOSPHATASE 338 U/L (46-116); ANION GAP 16 mmol/L (5-15); ASPARTATE AMINO TRANSFERASE 15 U/L (15-37); BILIRUBIN,TOTAL 0.3 MG/DL (0.2-1.0); BLOOD UREA NITROGEN 37 mg/dL (7-18); CALCIUM 8.9 MG/DL (8.5-10.1); CARBON DIOXIDE 16 MMOL/L (21-32); CHLORIDE 106 MMOL/L (98-107); CREATININE 1.7 MG/DL (0.55-1.30); SODIUM 138 MMOL/L (136-145)
[2019-10-28 08:46] LABS: PHOSPHORUS 4.3 MG/DL (2.5-4.9)
[2019-10-28] MEDS: Enoxaparin 40mg Inj SUBQ SCH (09:00)
--- NOTE | 2019-10-28 09:50 | Nephrology Progress Note ---
Assessment/Plan Problem List: (1) VELASQUEZ (acute kidney injury) Assessment: Underlying chronic kidney disease (2) UTI (urinary tract infection) (3) Hyponatremia (4) Hypokalemia (5) Dehydration (6) Colostomy complication Assessment Acute renal failure, mainly prerenal azotemia, mainly dehydration Underlying chronic kidney disease cannot be ruled out Severe hyponatremia Hypokalemia Urinary tract infection, sepsis Hypoalbuminemia, elevated liver enzymes Plan Stop IV fluid, stop KCl, stop Neutra-Phos Bicitra p.o. Mag oxide p.o. Monitor renal parameters and intake and output Monitor electrolytes Avoid nephrotoxic's Subjective ROS Limited/Unobtainable: No Constitutional: Reports: malaise Objective Objective Last 24 Hour Vital Signs Date Time Temp Pulse Resp B/P (MAP) Pulse Ox O2 Delivery O2 Flow Rate FiO2 10/28/19 08:00 98.6 97 17 99/63 (75) 100 10/28/19 04:00 98.7 106 17 100/60 (73) 97 10/27/19 21:00 Room Air 10/27/19 20:54 103 100/66 (77) 10/27/19 20:00 98.1 89 17 88/59 (69) 99 10/27/19 16:00 98.6 90 18 98/68 (78) 98 10/27/19 14:57 98.8 10/27/19 12:00 98.8 95 18 109/71 (84) 97 Intake and Output 10/27/19 10/28/19 19:00 07:00 Intake Total 1200 ml 672 ml Output Total 1200 ml 650 ml Balance 0 ml 22 ml Intake Oral 1200 ml 672 ml Stool Total 1200 ml 650 ml # Voids 3 # Bowel Movements 1 1 Current Medications Medications (Trade) Dose Ordered Sig/Natanael Route PRN Reason Start Time Stop Time Status Last Admin Dose Admin Acetaminophen (Tylenol) 650 mg Q4H PRN ORAL T>100.5/Mild Pain 10/25/19 15:45 11/21/19 05:59 Dextrose (Dextrose 50%) 25 ml Q30M PRN IV Hypoglycemia 10/25/19 15:30 01/20/20 05:59 Dextrose (Dextrose 50%) 50 ml Q30M PRN IV Hypoglycemia 10/25/19 15:30 01/20/20 05:59 Diphenhydramine HCl (Benadryl) 50 mg Q8H PRN ORAL Itching 10/26/19 11:45 11/25/19 11:44 10/28/19 03:41 Docusate Sodium (Colace) 100 mg TID ORAL 10/28/19 13:00 11/21/19 08:59 UNV Enoxaparin Sodium (Lovenox) 40 mg DAILY SUBQ 10/26/19 09:00 01/23/20 09:17 10/27/19 09:00 Magnesium Oxide (Mag-Ox 400mg) 400 mg THREE TIMES A DAY ORAL 10/28/19 13:00 11/27/19 12:59 UNV Morphine Sulfate (Morphine Sulfate) 2 mg Q3H PRN IVP Moderate Pain (Pain Scale 4-6) 10/25/19 15:30 10/29/19 15:29 10/26/19 11:37 Morphine Sulfate (Morphine Sulfate) 4 mg Q3H PRN IVP Severe Pain (Pain Scale 7-10) 10/25/19 15:30 10/29/19 15:29 Ondansetron HCl (Zofran) 4 mg Q6H PRN IVP Nausea & Vomiting 10/25/19 15:30 11/21/19 15:29 Oxycodone/ Acetaminophen (Percocet 5-325) 1 tab Q4H PRN ORAL Breakthrough Pain 10/25/19 15:30 10/30/19 15:29 10/28/19 03:41 Pantoprazole (Protonix) 40 mg EVERY 12 HOURS ORAL 10/25/19 21:00 11/21/19 20:59 10/27/19 21:02 Polyethylene Glycol (Miralax) 17 gm DAILYPRN PRN ORAL Constipation 10/25/19 15:30 11/24/19 15:29 Sodium Citrate (Bicitra) 30 ml TID ORAL 10/28/19 13:00 11/21/19 14:14 UNV Tamsulosin HCl (Flomax) 0.4 mg BEDTIME ORAL 10/25/19 21:00 11/21/19 20:59 10/27/19 21:02 Vancomycin HCl (Vanco rx to dose) 1 ea DAILY PRN MISC Per rx protocol 10/26/19 09:00 11/21/19 20:59 Vancomycin/Sodium Chloride 275 ml @ 183.333 mls/hr ONCE IVPB 4/19/20 10:00 10/28/19 13:00 Laboratory Tests 10/28/19 06:50: Sodium Level 138, Potassium Level 4.0, Chloride Level 106, Carbon Dioxide Level 16L, Anion Gap 16H, Blood Urea Nitrogen 37H, Creatinine 1.7H, Estimat Glomerular Filtration Rate 41.2, Glucose Level 105, Calcium Level 8.9, Phosphorus Level 4.3, Magnesium Level 1.5L, Total Bilirubin 0.3, Aspartate Amino Transf (AST/SGOT) 15, Alanine Aminotransferase (ALT/SGPT) 39, Alkaline Phosphatase 338H, Total Protein 7.2, Albumin 2.7L, Globulin 4.5, Albumin/ Globulin Ratio 0.6L, Random Vancomycin Level 11.8 Height (Feet): 5 Height (Inches): 6.00 Weight (Pounds): 130 General Appearance: no apparent distress Cardiovascular: tachycardia Respiratory/Chest: decreased breath sounds Abdomen: other - Colostomy Objective no change Luther Montgomery MD Oct 28, 2019 09:50
[2019-10-28] MEDS ORDERED: Vancomycin 1.25gm/NS Premix IVPB SCH (10:00)
[2019-10-28] MEDS ORDERED: BICITRA30 ML ORAL (10:34)
[2019-10-28] MEDS ORDERED: FLOMAX0.4 MG ORAL (10:34)
[2019-10-28] MEDS ORDERED: AUGMENTIN 875-1 EAC1 ORAL (10:34)
[2019-10-28] MEDS ORDERED: MAG-OX 400400 MG ORAL (10:34)
[2019-10-28] MEDS ORDERED: LOVENOX10 M4 SUBQ (10:34)
--- NOTE | 2019-10-28 10:45 | Discharge Summary ---
Discharge Summary Hospital Course Date of Admission Oct 21, 2019 at 22:55 Date of Discharge 10/28/19 Admitting Diagnosis dehydration, weakness, UTI, VELASQUEZ HPI Edgardo Sutton is a 63 year old male who was admitted on Oct 21, 2019 at 22:55 for Dehydration, Weakness, VELASQUEZ, UTI. Consultations Renal General Surgery Procedures None Hospital Course 63 /o male s/p rectal resection due to malignancy and possible cystoprostatectomy # He was found to have Sepsis due to UTI Ceftriaxone started and stopped 10/24 per urine culture sensitivities and continued on Vancomycin for Enterococcus UTI. After Monitoring CBC. WBC is downtrending and improved. # Acute renal failure due to dehydration IVF provided with good result. Renal consult with Dr. Montgomery. AG metabolic acidosis. Bicitra 30 ml q 8 hr adjusted and will be continued with bi weekly BMP until bicarbonate is steady and greater than 21 Creatinine improved # Hypokalemia, hypomagnesemia. Most likely due to GI loss. Mag Ox supplement will be continued. # Metabolic acidosis Monitor Acid Base status BMP and Bicitra in place. #History of rectal cancer s/p resection and cystoprostatectomy ( NO ILEAL CONDUIT as previously documented. ) Colostomy care and evaluation with surgery appreciated. Pain control. Baseline he uses Oxycodone 10 mg PRN q 4-6 hr # DVT ppx Enoxaparin will be continued # PT evaluation appreciated and needs to continue. # FULL CODE Discharge Medications New Medications: PENDING: Amoxicillin/Potassium Clav 875-125* (Augmentin 875-125 Tablet*) 1 Each Tablet 1 TAB ORAL TWICE A DAY for 5 Days, TAB PENDING: Enoxaparin* (Lovenox*) 40 Mg/0.4 Ml Inj 40 MG SUBQ DAILY for 30 Days, #30 AMP 3 Refills PENDING: Magnesium Oxide (Magnesium Oxide) 400 Mg Tablet 400 MG ORAL THREE TIMES A DAY for 30 Days, #90 TAB 1 Refill PENDING: Sodium Citrate (Sod Citrate-Citric Acid Soln) 30 Ml Solution 30 ML ORAL TID for 14 Days, #42 EA 1 Refill PENDING: Tamsulosin HCl (Flomax) 0.4 Mg Cap.er.24h 0.4 MG ORAL BEDTIME for 30 Days, #30 CAP 1 Refill Continued Medications: Acetaminophen* (Tylenol Extra Strength*) 500 Mg Tablet 1000 MG ORAL Q6H PRN for Mild Pain/Temp > 100.5, TAB 0 Refills Diphenhydramine Hcl* (Benadryl Allergy*) 12.5 Mg/5 Ml Liquid 25 MG ORAL BEDTIME PRN for insomnia, ML 0 Refills Loperamide Hcl (Imodium A-D) 1 Mg/7.5 Ml Liquid 2 CAP PO BID for diarrhea, ML Ondansetron Odt* (Zofran Odt*) 8 Mg Tab.rapdis 4 MG ORAL Q6H PRN for Nausea & Vomiting, #30 TAB Oxycodone Hcl (Oxycodone Hcl) 20 Mg Tablet 5 MG ORAL BID PRN for For Pain, #10 TAB 0 Refills Discharge Condition Upon Discharge: stable Discharge Vital Signs Last Vital Signs Date Time Temp Pulse Resp B/P (MAP) Pulse Ox O2 Delivery O2 Flow Rate FiO2 10/28/19 08:00 98.6 97 17 99/63 (75) 100 10/27/19 21:00 Room Air Discharge Disposition Patient was discharged [place] [facility] [place] Discharge Diagnoses: (1) Sepsis (2) Hypokalemia (3) Dehydration (4) VELASQUEZ (acute kidney injury) (5) UTI (urinary tract infection) (6) Weakness (7) Colostomy complication (8) Hyponatremia Aminah Torres MD Oct 28, 2019 10:45
[2019-10-28 12:00] VITALS: BP 108/73
[2019-10-28] MEDS ORDERED: Magnesium Oxide 400mg tab ORAL SCH (13:00)
[2019-10-28] MEDS ORDERED: Sodium Citrate 30ml ORAL SCH (13:00)
[2019-10-28] MEDS ORDERED: Docusate 100mg cap ORAL SCH (13:00)
--- NOTE | 2019-10-28 13:31 | Surgery Progress Note ---
Surgery Progress Note Subjective Additional Comments no acute events no leak today bag emptied discussed with pcp Objective Last 24 Hour Vital Signs Date Time Temp Pulse Resp B/P (MAP) Pulse Ox O2 Delivery O2 Flow Rate FiO2 10/28/19 12:00 99.0 100 17 108/73 (85) 99 10/28/19 09:59 98.6 10/28/19 09:00 Room Air 10/28/19 08:00 98.6 97 17 99/63 (75) 100 10/28/19 04:00 98.7 106 17 100/60 (73) 97 10/27/19 21:00 Room Air 10/27/19 20:54 103 100/66 (77) 10/27/19 20:00 98.1 89 17 88/59 (69) 99 10/27/19 16:00 98.6 90 18 98/68 (78) 98 I&O Intake and Output 10/27/19 10/28/19 19:00 07:00 Intake Total 1200 ml 672 ml Output Total 1200 ml 650 ml Balance 0 ml 22 ml Intake Oral 1200 ml 672 ml Stool Total 1200 ml 650 ml # Voids 3 # Bowel Movements 1 1 Dressing: dry Wound: clean Cardiovascular: RSR Respiratory: clear Abdomen: soft, flat, non-tender, present bowel sounds Extremities: no edema, no tenderness, no cyanosis Laboratory Tests Test 10/28/19 06:50 Sodium Level 138 MMOL/L (136-145) Potassium Level 4.0 MMOL/L (3.5-5.1) Chloride Level 106 MMOL/L (98-107) Carbon Dioxide Level 16 MMOL/L (21-32) L Anion Gap 16 mmol/L (5-15) H Blood Urea Nitrogen 37 mg/dL (7-18) H Creatinine 1.7 MG/DL (0.55-1.30) H Estimat Glomerular Filtration Rate 41.2 mL/min (>60) Glucose Level 105 MG/DL (74-106) Calcium Level 8.9 MG/DL (8.5-10.1) Phosphorus Level 4.3 MG/DL (2.5-4.9) Magnesium Level 1.5 MG/DL (1.8-2.4) L Total Bilirubin 0.3 MG/DL (0.2-1.0) Aspartate Amino Transf (AST/SGOT) 15 U/L (15-37) Alanine Aminotransferase (ALT/SGPT) 39 U/L (12-78) Alkaline Phosphatase 338 U/L (46-116) H Total Protein 7.2 G/DL (6.4-8.2) Albumin 2.7 G/DL (3.4-5.0) L Globulin 4.5 g/dL Albumin/Globulin Ratio 0.6 (1.0-2.7) L Random Vancomycin Level 11.8 ug/mL Plan Problems: (1) Colostomy complication Assessment & Plan: Patient with a ostomy since surgery in July at [facility] [place] for rectal cancer. States he woke up after 6-hour surgery was told that they took out a portion of his bladder and gave him an ostomy. He did not have an APR as he still has a rectum. He thinks he has a colostomy and very potential but also could potentially have a ileostomy as well given the consistency output of the evacuation into his bag. Will need operative for further details. The periwound has significant wound of skin breakdown from leakage. It is identified from the ostomy site all the way down to the right pelvis groin and flank. Patient states that when he leaks he does not clean himself up. He relies on nurses which she says are very poor caring for him. He states that all this should be taken care of and that no one sees him in should be cleaned and bag evacuated often. He is fully functioning as he eats on his own feeds himself drinks except soda bottles cans but states that he cannot care for his ostomy at all himself. He is fairly reluctant to learn or do that as well. I tried talking to him about and teaching him some care plan and instructions but he states if the nurses would do their job he would have to be dealing with this. At this time no surgical intervention necessary. Abdominal exam is benign and his midline incision from prior surgeries well-healed. His ostomy looks well in the right lower quadrant but there is skin changes around it which are fairly extensive from leakage. Would recommend skin protectant and very close monitoring for leakage. Change ostomy bag weekly and more often as necessary. Ostomy care and nursing staff to help. Patient should really try to learn how to assist with the care plan as granted he may not have fine touch and movement from his neuropathy he is stable to care for himself as he does feed himself and drink so therefore he could likely wipe himself clean if there is leakage noted until nursing staff can help him. Explained this in detail to patient. Okay for discharge from surgical standpoint. Thank you for let me participate in patient's care in discussion with pcp and report likely had LAR with diverting ostomy given he has anus, and output seemingly small bowel . does not look like he has bladder resection possible only partial vs repair cont with above care plan d/c planning Gary Alegre Oct 28, 2019 13:31
== END 2019-10-28 14:00 | DRG 720 ==
LOC: EDBD 21:07 → EMR 21:20 → EDBEDREQSVC 21:49 → INTOOBSV 22:55 → OBSVTOIN 22:55 → 2W 22:55 → EDBEDREQ 10-22 06:16 → 2W 10-22 08:54 → 2E 10-24 07:15 → 3E 10-25 15:09
DX: A41.9 Sepsis, unspecified organism (principal); E87.1 Hypo-osmolality and hyponatremia; N17.9 Acute kidney failure, unspecified; N39.0 Urinary tract infection, site not specified; E87.6 Hypokalemia; Z88.6 Allergy status to analgesic agent; Z88.8 Allergy status to other drugs, medicaments and biological substances; Z85.048 Personal history of other malignant neoplasm of rectum, rectosigmoid junction, and anus; E86.0 Dehydration; E83.42 Hypomagnesemia; K94.00 Colostomy complication, unspecified; Y83.3 Surgical operation with formation of external stoma as the cause of abnormal reaction of the patient, or of later complication, without mention of misadventure at the time of the procedure
CPT/HCPCS: 36415; 36600; 71045; 80048; 80053; 80202; 81003; 82550; 82607; 82728; 82746; 82803; 82977; 83036; 83540; 83550; 83605; 83615; 83735; 83880; 84100; 84153; 84300; 84443; 84484; 84550; 85007; 85025; 85379; 85610; 85651; 85730; 86140; 87040; 87086; 87181; 93005; 96360; 96361; 96365; 96374; 96375; 99284; C9399; J7030; J8499